=== PATIENT | female | born 1950 | race Caucasian/White ===

== ENCOUNTER 2017-12-10 15:13 | Inpatient (IN) | payer MEDICARE, OTHER ==
[2017-12-10 15:40] LABS: ADD MAN DIFF? NO
[2017-12-10 15:47] LABS: ABNORMAL IP MESSAGE 1; BASOPHILS % 0.3 % (0.0-2.0); EOSINOPHILS # 0.1 10^3/ul (0.0-0.5); EOSINOPHILS % 0.9 % (0.0-7.0); HEMATOCRIT 36.2 % (37.0-47.0); HEMOGLOBIN 10.8 g/dl (12.0-16.0); LYMPHOCYTES # 0.3 10^3/ul (0.8-2.9); LYMPHOCYTES % 4.6 % (15.0-51.0); MEAN CORPUSCULAR HEMOGLOBIN 28.6 pg (29.0-33.0); MEAN CORPUSCULAR HGB CONC 29.8 g/dl (32.0-37.0); MEAN PLATELET VOLUME 9.4 fl (7.4-10.4); MONOCYTE # 0.7 10^3/ul (0.3-0.9); MONOCYTES % 11.1 % (0.0-11.0); NEUTROPHIL # 5.3 10^3/ul (1.6-7.5); NEUTROPHILS % 82.3 % (39.0-77.0); PLATELET COUNT 104 10^3/UL (140-415); RED BLOOD COUNT 3.77 10^6/ul (4.20-5.40); RED CELL DISTRIBUTION WIDTH 15.1 % (11.5-14.5)
[2017-12-10 15:47] LABS: WHITE BLOOD COUNT 6.5 10^3/ul (4.8-10.8)
[2017-12-10 15:50] LABS: POSITIVE DIFF @See below
[2017-12-10 16:05] LABS: INR 0.91; PROTIME 12.3 Sec (11.9-14.9)
[2017-12-10 16:07] LABS: ALANINE AMINOTRANSFERASE 20 IU/L (13-69); ALBUMIN 4.2 g/dl (3.3-4.9); ALBUMIN/GLOBULIN RATIO 1.27; ALKALINE PHOSPHATASE 114 IU/L (42-121); ANION GAP 17 (8-16); ASPARTATE AMINO TRANSFERASE 16 IU/L (15-46); BILIRUBIN,INDIRECT 0.3 mg/dl (0-1.1); BILIRUBIN,TOTAL 0.3 mg/dl (0.2-1.3); BLOOD UREA NITROGEN 31 mg/dl (7-20); CARBON DIOXIDE 30 mmol/L (21-31); CHLORIDE 97 mmol/L (97-110); CREATININE 4.69 mg/dl (0.44-1.00); GLUCOSE 98 mg/dl (70-220); POTASSIUM 4.3 mmol/L (3.5-5.1); SODIUM 140 mmol/L (135-144); TOTAL PROTEIN 7.5 g/dl (6.1-8.1)
[2017-12-10 16:08] LABS: LACTIC ACID 1.4 mmol/L (0.5-2.0)
[2017-12-10] MEDS: ACETAMINOPHEN 325 MG TAB PO (16:11)
[2017-12-10] MEDS: AZTREONAM 1 GM/NS (PMX) 50 ML IVPB (16:11)
[2017-12-10] MEDS: VANCOMYCIN 1 GM (PMX) 250 ML IVPB (16:11)
[2017-12-10 16:17] LABS: TROPONIN-I 0.031 ng/ml (0.000-0.120)
[2017-12-10] MEDS: morphine 4 MG/ML VIAL IV (17:57)
[2017-12-10 18:27] LABS: LACTIC ACID 0.9 mmol/L (0.5-2.0)
[2017-12-10] MEDS ORDERED: ACETAMINOPHEN 325 MG TAB PO (18:30)
[2017-12-10] MEDS ORDERED: ONDANSETRON 4 MG INJ IV (18:30)
[2017-12-10] MEDS ORDERED: VANCOMYCIN IV PER PHARMACY XX (19:30)
[2017-12-10] MEDS: LOSARTAN 50 MG TAB PO (20:02)
[2017-12-10] MEDS: HEPARIN 5,000 UNIT/0.5 ML VIAL SC (21:00)
[2017-12-10] MEDS: ATORVASTATIN 20 MG TAB PO (21:55)
[2017-12-10] MEDS: CALCIUM ACETATE 667 MG CAP PO (21:55)
[2017-12-10] MEDS: METOPROLOL 25 MG TAB PO (21:55)
[2017-12-10] MEDS: morphine 2 MG INJ IV (21:56)
[2017-12-11] MEDS ORDERED: SENNA TAB PO (01:30)
[2017-12-11] MEDS: morphine 2 MG INJ IV ×2 (02:46→06:24)
[2017-12-11 06:19] LABS: ADD MAN DIFF? NO
[2017-12-11 06:39] LABS: ABNORMAL IP MESSAGE 1; BASOPHILS % 0.1 % (0.0-2.0); HEMATOCRIT 33.2 % (37.0-47.0); HEMOGLOBIN 9.7 g/dl (12.0-16.0); LYMPHOCYTES # 0.5 10^3/ul (0.8-2.9); LYMPHOCYTES % 6.5 % (15.0-51.0); MEAN CORPUSCULAR HEMOGLOBIN 28.4 pg (29.0-33.0); MEAN CORPUSCULAR HGB CONC 29.2 g/dl (32.0-37.0); MEAN CORPUSCULAR VOLUME 97.1 fl (82.0-101.0); MEAN PLATELET VOLUME 10.3 fl (7.4-10.4); MONOCYTE # 0.3 10^3/ul (0.3-0.9); MONOCYTES % 3.9 % (0.0-11.0); NEUTROPHIL # 6.1 10^3/ul (1.6-7.5); NEUTROPHILS % 89.2 % (39.0-77.0); PLATELET COUNT 78 10^3/UL (140-415); RED BLOOD COUNT 3.42 10^6/ul (4.20-5.40)
[2017-12-11 06:39] LABS: WHITE BLOOD COUNT 6.9 10^3/ul (4.8-10.8)
[2017-12-11 06:59] LABS: ANION GAP 15 (8-16); BLOOD UREA NITROGEN 43 mg/dl (7-20); CALCIUM 8.5 mg/dl (8.4-10.2); CARBON DIOXIDE 27 mmol/L (21-31); CHLORIDE 100 mmol/L (97-110); CREATININE 5.38 mg/dl (0.44-1.00); GLUCOSE 92 mg/dl (70-220); PHOSPHORUS 3.9 mg/dl (2.5-4.9); SODIUM 137 mmol/L (135-144)
[2017-12-11 07:00] LABS: POSITIVE DIFF @See below
[2017-12-11 07:08] LABS: ALANINE AMINOTRANSFERASE 16 IU/L (13-69); ALBUMIN 3.4 g/dl (3.3-4.9); ALBUMIN/GLOBULIN RATIO 1.21; ALKALINE PHOSPHATASE 79 IU/L (42-121); ANION GAP 18 (8-16); ASPARTATE AMINO TRANSFERASE 11 IU/L (15-46); BILIRUBIN,INDIRECT 0.1 mg/dl (0-1.1); BILIRUBIN,TOTAL 0.1 mg/dl (0.2-1.3); BLOOD UREA NITROGEN 44 mg/dl (7-20); CALCIUM 8.6 mg/dl (8.4-10.2); CARBON DIOXIDE 29 mmol/L (21-31); CHLORIDE 96 mmol/L (97-110); CREATININE 5.32 mg/dl (0.44-1.00); GLUCOSE 95 mg/dl (70-220); SODIUM 138 mmol/L (135-144); TOTAL PROTEIN 6.2 g/dl (6.1-8.1)
[2017-12-11] MEDS: CALCIUM ACETATE 667 MG CAP PO ×3 (09:25→21:11)
[2017-12-11] MEDS: SENNA TAB PO (09:25)
[2017-12-11] MEDS: CEFTRIAXONE 1 GM/50 ML (PMX) 50 ML IVPB (09:26)
[2017-12-11] MEDS ORDERED: ACETAMINOPHEN 325 MG TAB PO (09:30)
[2017-12-11] MEDS: METHIMAZOLE 5 MG TAB PO (09:30)
[2017-12-11] MEDS ORDERED: OXYCODONE/ACETAMINOPHEN (10/325) TAB PO (09:30)
[2017-12-11] MEDS: METOPROLOL 25 MG TAB PO ×2 (09:30→21:13)
[2017-12-11] MEDS ORDERED: ONDANSETRON 4 MG INJ IV (09:30)
[2017-12-11] MEDS: LOSARTAN 50 MG TAB PO (09:31)
[2017-12-11] MEDS: OXYCODONE/ACETAMINOPHEN (5/325) TAB PO ×4 (10:37→23:48)
[2017-12-11] MEDS: ATORVASTATIN 20 MG TAB PO (21:10)
[2017-12-11 21:32] LABS: HEPATITIS B SURFACE ANTIGEN NEGATIVE (NEGATIVE)
[2017-12-12] MEDS: OXYCODONE/ACETAMINOPHEN (5/325) TAB PO ×5 (05:32→21:51)
[2017-12-12 06:10] LABS: ADD MAN DIFF? NO
[2017-12-12 06:22] LABS: ABNORMAL IP MESSAGE 1; BASOPHILS % 0.3 % (0.0-2.0); HEMATOCRIT 31.5 % (37.0-47.0); HEMOGLOBIN 9.4 g/dl (12.0-16.0); LYMPHOCYTES # 0.5 10^3/ul (0.8-2.9); LYMPHOCYTES % 13.6 % (15.0-51.0); MEAN CORPUSCULAR HEMOGLOBIN 27.8 pg (29.0-33.0); MEAN CORPUSCULAR HGB CONC 29.8 g/dl (32.0-37.0); MEAN CORPUSCULAR VOLUME 93.2 fl (82.0-101.0); MEAN PLATELET VOLUME 10.4 fl (7.4-10.4); MONOCYTE # 0.2 10^3/ul (0.3-0.9); MONOCYTES % 5.8 % (0.0-11.0); NEUTROPHIL # 3.2 10^3/ul (1.6-7.5); NEUTROPHILS % 79.8 % (39.0-77.0); RED BLOOD COUNT 3.38 10^6/ul (4.20-5.40); RED CELL DISTRIBUTION WIDTH 14.8 % (11.5-14.5)
[2017-12-12 06:53] LABS: PLATELET COUNT 81 10^3/UL (140-415); POSITIVE DIFF @See below
[2017-12-12 07:10] LABS: ALANINE AMINOTRANSFERASE 22 IU/L (13-69); ALBUMIN 3.4 g/dl (3.3-4.9); ALBUMIN/GLOBULIN RATIO 1.09; ALKALINE PHOSPHATASE 85 IU/L (42-121); ANION GAP 16 (8-16); ASPARTATE AMINO TRANSFERASE 11 IU/L (15-46); BILIRUBIN,INDIRECT 0.2 mg/dl (0-1.1); BILIRUBIN,TOTAL 0.2 mg/dl (0.2-1.3); BLOOD UREA NITROGEN 31 mg/dl (7-20); CALCIUM 8.7 mg/dl (8.4-10.2); CARBON DIOXIDE 29 mmol/L (21-31); CHLORIDE 95 mmol/L (97-110); CREATININE 3.62 mg/dl (0.44-1.00); GLUCOSE 86 mg/dl (70-220); POTASSIUM 4.5 mmol/L (3.5-5.1); SODIUM 135 mmol/L (135-144); TOTAL PROTEIN 6.5 g/dl (6.1-8.1)
[2017-12-12 07:25] LABS: VANCOMYCIN,RANDOM < 5.0 ug/ml
[2017-12-12] MEDS: CALCIUM ACETATE 667 MG CAP PO ×3 (07:50→20:55)
[2017-12-12 08:11] LABS: ADD UMIC YES; UR ASCORBIC ACID NEGATIVE (NEGATIVE); UR BACTERIA FEW /HPF (NONE SEEN); UR BILIRUBIN (Dip) NEGATIVE (NEGATIVE); UR BLOOD (Dip) NEGATIVE (NEGATIVE); UR CLARITY CLOUDY (CLEAR); UR COLOR YELLOW (YELLOW); UR GLUCOSE (Dip) NEGATIVE (NEGATIVE); UR KETONES (Dip) NEGATIVE (NEGATIVE); UR LEUKOCYTE ESTERASE (Dip) 3+ Leu/ul (NEGATIVE); UR NITRITE (Dip) NEGATIVE (NEGATIVE); UR NONSQUAMOUS EPITHELIAL CELL 1 /HPF (NONE SEEN); UR RBC 7 /HPF (0-5); UR SPECIFIC GRAVITY (Dip) 1.017 (1.003-1.030); UR SQUAMOUS EPITHELIAL CELL FEW /HPF (FEW); UR TOTAL PROTEIN (Dip) 2+ mg/dl (NEGATIVE); UR UROBILINOGEN (Dip) NEGATIVE (NEGATIVE); UR WBC > 182 /HPF (0-5)
[2017-12-12] MEDS: CEFTRIAXONE 1 GM/50 ML (PMX) 50 ML IVPB (09:17)
[2017-12-12] MEDS: SENNA TAB PO (09:17)
[2017-12-12] MEDS: METHIMAZOLE 5 MG TAB PO (09:17)
[2017-12-12] MEDS: LOSARTAN 50 MG TAB PO (09:18)
[2017-12-12] MEDS: METOPROLOL 25 MG TAB PO ×2 (09:21→20:58)
[2017-12-12] MEDS: ATORVASTATIN 20 MG TAB PO (20:55)
[2017-12-13] MEDS: OXYCODONE/ACETAMINOPHEN (5/325) TAB PO ×6 (01:52→23:00)
[2017-12-13 06:37] LABS: ADD MAN DIFF? NO
[2017-12-13 06:44] LABS: WHITE BLOOD COUNT 5.1 10^3/ul (4.8-10.8)
[2017-12-13 06:44] LABS: BASOPHILS % 0.4 % (0.0-2.0); EOSINOPHILS % 0.2 % (0.0-7.0); HEMATOCRIT 33.1 % (37.0-47.0); HEMOGLOBIN 9.9 g/dl (12.0-16.0); LYMPHOCYTES # 0.9 10^3/ul (0.8-2.9); MEAN CORPUSCULAR HEMOGLOBIN 27.4 pg (29.0-33.0); MEAN CORPUSCULAR HGB CONC 29.9 g/dl (32.0-37.0); MEAN CORPUSCULAR VOLUME 91.7 fl (82.0-101.0); MEAN PLATELET VOLUME 10.2 fl (7.4-10.4); MONOCYTE # 0.4 10^3/ul (0.3-0.9); MONOCYTES % 8.5 % (0.0-11.0); NEUTROPHIL # 3.7 10^3/ul (1.6-7.5); NEUTROPHILS % 73.5 % (39.0-77.0); PLATELET COUNT 101 10^3/UL (140-415); RED BLOOD COUNT 3.61 10^6/ul (4.20-5.40); RED CELL DISTRIBUTION WIDTH 14.9 % (11.5-14.5)
[2017-12-13 07:23] LABS: ANION GAP 18 (8-16); BLOOD UREA NITROGEN 57 mg/dl (7-20); CALCIUM 8.5 mg/dl (8.4-10.2); CARBON DIOXIDE 29 mmol/L (21-31); CHLORIDE 93 mmol/L (97-110); GLUCOSE 86 mg/dl (70-220); POTASSIUM 4.6 mmol/L (3.5-5.1); SODIUM 135 mmol/L (135-144)
[2017-12-13] MEDS: CEFTRIAXONE 1 GM/50 ML (PMX) 50 ML IVPB (08:54)
[2017-12-13] MEDS: SENNA TAB PO (08:54)
[2017-12-13] MEDS: LOSARTAN 50 MG TAB PO (08:55)
[2017-12-13] MEDS: CALCIUM ACETATE 667 MG CAP PO ×3 (08:56→21:10)
[2017-12-13] MEDS: METHIMAZOLE 5 MG TAB PO (08:56)
[2017-12-13] MEDS: METOPROLOL 25 MG TAB PO ×2 (08:57→21:10)
[2017-12-13] MEDS: LEVOFLOXACIN 250 MG TAB PO (10:35)
[2017-12-13] MEDS: LOPERAMIDE 2 MG CAP PO ×3 (10:35→23:01)
[2017-12-13] MEDS: ATORVASTATIN 20 MG TAB PO (21:09)
[2017-12-13] MEDS: clonAZEPAM 0.5 MG TAB PO (22:59)
[2017-12-14] MEDS: OXYCODONE/ACETAMINOPHEN (5/325) TAB PO ×6 (06:05→23:44)
[2017-12-14] MEDS: LOPERAMIDE 2 MG CAP PO ×2 (06:13→15:14)
[2017-12-14] MEDS: LOSARTAN 50 MG TAB PO (08:42)
[2017-12-14] MEDS: METOPROLOL 25 MG TAB PO ×2 (08:42→20:45)
[2017-12-14] MEDS: METHIMAZOLE 5 MG TAB PO (08:43)
[2017-12-14] MEDS: CALCIUM ACETATE 667 MG CAP PO ×3 (08:43→20:43)
[2017-12-14] MEDS: ATORVASTATIN 20 MG TAB PO (20:43)
[2017-12-14] MEDS: clonAZEPAM 0.5 MG TAB PO (22:12)
[2017-12-15] MEDS: OXYCODONE/ACETAMINOPHEN (5/325) TAB PO ×5 (06:13→22:53)
[2017-12-15] MEDS: CALCIUM ACETATE 667 MG CAP PO ×3 (08:21→20:51)
[2017-12-15] MEDS: METOPROLOL 25 MG TAB PO ×2 (08:22→20:51)
[2017-12-15] MEDS: LOSARTAN 50 MG TAB PO (08:22)
[2017-12-15] MEDS: METHIMAZOLE 5 MG TAB PO (08:23)
[2017-12-15] MEDS: LEVOFLOXACIN 250 MG TAB PO (10:22)
[2017-12-15] MEDS: clonAZEPAM 0.5 MG TAB PO ×2 (13:46→22:53)
[2017-12-15] MEDS: ATORVASTATIN 20 MG TAB PO (20:51)
[2017-12-16] MEDS: OXYCODONE/ACETAMINOPHEN (5/325) TAB PO ×5 (04:40→21:41)
[2017-12-16] MEDS: CALCIUM ACETATE 667 MG CAP PO ×3 (08:51→20:58)
[2017-12-16] MEDS: METHIMAZOLE 5 MG TAB PO (08:51)
[2017-12-16] MEDS: METOPROLOL 25 MG TAB PO ×2 (08:55→20:59)
[2017-12-16] MEDS: LOSARTAN 50 MG TAB PO (08:55)
[2017-12-16 09:30] LABS: ADD MAN DIFF? NO
[2017-12-16 09:32] LABS: WHITE BLOOD COUNT 3.2 10^3/ul (4.8-10.8)
[2017-12-16 09:32] LABS: BASOPHILS % 0.9 % (0.0-2.0); EOSINOPHILS % 0.9 % (0.0-7.0); HEMATOCRIT 36.1 % (37.0-47.0); HEMOGLOBIN 10.9 g/dl (12.0-16.0); LYMPHOCYTES # 0.8 10^3/ul (0.8-2.9); LYMPHOCYTES % 25.9 % (15.0-51.0); MEAN CORPUSCULAR HEMOGLOBIN 28.8 pg (29.0-33.0); MEAN CORPUSCULAR HGB CONC 30.2 g/dl (32.0-37.0); MEAN CORPUSCULAR VOLUME 95.3 fl (82.0-101.0); MEAN PLATELET VOLUME 10.3 fl (7.4-10.4); MONOCYTE # 0.3 10^3/ul (0.3-0.9); NEUTROPHILS % 62.7 % (39.0-77.0); PLATELET COUNT 105 10^3/UL (140-415); RED BLOOD COUNT 3.79 10^6/ul (4.20-5.40); RED CELL DISTRIBUTION WIDTH 14.6 % (11.5-14.5)
[2017-12-16 10:27] LABS: ALANINE AMINOTRANSFERASE 16 IU/L (13-69); ALBUMIN 3.7 g/dl (3.3-4.9); ALBUMIN/GLOBULIN RATIO 1.23; ALKALINE PHOSPHATASE 71 IU/L (42-121); ANION GAP 19 (8-16); ASPARTATE AMINO TRANSFERASE 19 IU/L (15-46); BILIRUBIN,INDIRECT 0.1 mg/dl (0-1.1); BILIRUBIN,TOTAL 0.1 mg/dl (0.2-1.3); BLOOD UREA NITROGEN 57 mg/dl (7-20); CALCIUM 8.5 mg/dl (8.4-10.2); CARBON DIOXIDE 27 mmol/L (21-31); CHLORIDE 97 mmol/L (97-110); CREATININE 5.75 mg/dl (0.44-1.00); GLUCOSE 122 mg/dl (70-220); SODIUM 139 mmol/L (135-144); TOTAL PROTEIN 6.7 g/dl (6.1-8.1)
[2017-12-16 12:52] LABS: FREE T4 (FREE THYROXINE) 1.02 ng/dl (0.78-2.44)
[2017-12-16] MEDS: ATORVASTATIN 20 MG TAB PO (20:58)
[2017-12-16] MEDS: clonAZEPAM 0.5 MG TAB PO (21:41)
[2017-12-17] MEDS: OXYCODONE/ACETAMINOPHEN (5/325) TAB PO ×3 (04:56→13:21)
[2017-12-17] MEDS: METHIMAZOLE 5 MG TAB PO (09:00)
[2017-12-17] MEDS: CALCIUM ACETATE 667 MG CAP PO ×2 (09:01→13:21)
[2017-12-17] MEDS: METOPROLOL 25 MG TAB PO (09:03)
[2017-12-17] MEDS: LOSARTAN 50 MG TAB PO (09:03)
[2017-12-17] MEDS: LEVOFLOXACIN 250 MG TAB PO (11:00)
== END 2017-12-17 14:35 | disposition home or self-care (01) | DRG 871 ==
LOC: E/R 15:13 → MS2 18:23
PROC: 5A1D70Z Performance of Urinary Filtration, Intermittent, Less than 6 Hours Per Day (ICD-10-PCS; 2017-12-10)
PROC: 5A1D70Z Performance of Urinary Filtration, Intermittent, Less than 6 Hours Per Day (ICD-10-PCS; 2017-12-13)
PROC: 5A1D70Z Performance of Urinary Filtration, Intermittent, Less than 6 Hours Per Day (ICD-10-PCS; principal; 2017-12-15)
DX: A41.9 Sepsis, unspecified organism (principal); N18.6 End stage renal disease; N39.0 Urinary tract infection, site not specified; I12.0 Hypertensive chronic kidney disease with stage 5 chronic kidney disease or end stage renal disease; K52.1 Toxic gastroenteritis and colitis; N25.81 Secondary hyperparathyroidism of renal origin; E11.22 Type 2 diabetes mellitus with diabetic chronic kidney disease; D69.6 Thrombocytopenia, unspecified; I48.91 Unspecified atrial fibrillation; D63.1 Anemia in chronic kidney disease; E78.5 Hyperlipidemia, unspecified; E03.9 Hypothyroidism, unspecified; G89.4 Chronic pain syndrome; F41.9 Anxiety disorder, unspecified; T36.1X5A Adverse effect of cephalosporins and other beta-lactam antibiotics, initial encounter; T36.8X5A Adverse effect of other systemic antibiotics, initial encounter; Y92.230 Patient room in hospital as the place of occurrence of the external cause; B96.20 Unspecified Escherichia coli [E. coli] as the cause of diseases classified elsewhere; K80.20 Calculus of gallbladder without cholecystitis without obstruction; Z99.2 Dependence on renal dialysis; Z87.891 Personal history of nicotine dependence
CPT/HCPCS: 36415; 71045; 76775; 80048; 80053; 80202; 81001; 83605; 84100; 84439; 84443; 84484; 85025; 85610; 85730; 87040; 87075; 87081; 87086; 87340; 90935; 93005; 96374; 96375; 99285-25

== ENCOUNTER 2018-06-01 07:40 | Inpatient (IN) | payer MEDICARE, OTHER ==
[~2018-06-01 07:40] MED LIST: ATROPINE 1 MG/10 ML SYRINGE
[2018-06-01] MEDS: ATROPINE 0.4 MG INJ IV (08:44)
[2018-06-01 09:02] LABS: ADD MAN DIFF? NO
[2018-06-01 09:04] LABS: WHITE BLOOD COUNT 3.5 10^3/ul (4.8-10.8)
[2018-06-01 09:05] LABS: ABNORMAL IP MESSAGE 1; BASOPHILS % 0.3 % (0.0-2.0); EOSINOPHILS % 1.1 % (0.0-7.0); HEMATOCRIT 17.5 % (37.0-47.0); LYMPHOCYTES # 0.8 10^3/ul (0.8-2.9); LYMPHOCYTES % 21.9 % (15.0-51.0); MEAN CORPUSCULAR HEMOGLOBIN 22.7 pg (29.0-33.0); MEAN CORPUSCULAR HGB CONC 26.3 g/dl (32.0-37.0); MEAN CORPUSCULAR VOLUME 86.2 fl (82.0-101.0); MEAN PLATELET VOLUME 11.7 fl (7.4-10.4); MONOCYTE # 0.4 10^3/ul (0.3-0.9); MONOCYTES % 10.8 % (0.0-11.0); NEUTROPHIL # 2.3 10^3/ul (1.6-7.5); NEUTROPHILS % 65.6 % (39.0-77.0); RED BLOOD COUNT 2.03 10^6/ul (4.20-5.40); RED CELL DISTRIBUTION WIDTH 17.4 % (11.5-14.5)
[2018-06-01 09:06] LABS: PLATELET COUNT 76 10^3/UL (140-415); POSITIVE DIFF @See below
[2018-06-01 09:09] LABS: HEMOGLOBIN 4.6 g/dl (12.0-16.0)
[2018-06-01 09:21] LABS: ANION GAP 11 (5-13); BLOOD UREA NITROGEN 28 mg/dl (7-20); CALCIUM 6.4 mg/dl (8.4-10.2); CARBON DIOXIDE 22 mmol/L (21-31); CHLORIDE 106 mmol/L (97-110); Estimated GFR 11 mL/min (>60); GLUCOSE 66 mg/dl (70-220); SODIUM 139 mmol/L (135-144)
[2018-06-01 09:24] LABS: PARTIAL THROMBOPLASTIN TIME 35.5 Sec (23.0-35.0); PROTIME 21.3 Sec (11.9-14.9); PT RATIO 1.7
[2018-06-01 09:25] LABS: POTASSIUM 2.9 mmol/L (3.5-5.1)
[2018-06-01 09:32] LABS: TROPONIN-I 0.044 ng/ml (0.000-0.120)
[2018-06-01 09:33] LABS: PATH REVIEW? YES
[2018-06-01 10:14] LABS: DIGOXIN < 0.4 ng/ml (1.0-2.0)
[2018-06-01] MEDS ORDERED: SOD CHLORIDE 0.9% 1,000 ML IV ×2 (12:19→13:30)
[2018-06-01] MEDS ORDERED: ACETAMINOPHEN 325 MG TAB PO (12:30)
[2018-06-01] MEDS ORDERED: ONDANSETRON 4 MG INJ IV (12:30)
[2018-06-01] MEDS: ONDANSETRON 4 MG INJ IV (13:06)
[2018-06-01] MEDS: morphine 4 MG/ML VIAL IV (13:06)
[2018-06-01] MEDS: LOSARTAN 50 MG TAB PO ×2 (13:30→22:39)
[2018-06-01] MEDS: METOPROLOL 25 MG TAB PO ×2 (13:30→22:40)
[2018-06-01] MEDS: clonAZEPAM 0.5 MG TAB PO ×2 (13:30→21:00)
[2018-06-01] MEDS ORDERED: VANCOMYCIN IV PER PHARMACY XX (13:30)
[2018-06-01] MEDS: HYDROCODONE/APAP (10/325) TAB PO ×2 (13:52→19:31)
[2018-06-01] MEDS: DEXTROSE 5%-0.45% NACL 1,000 ML IV (13:57)
[2018-06-01 14:34] LABS: IMMEDIATE SPIN CROSSMATCH 1 2
[2018-06-01] MEDS: LORAZEPAM 4 MG/ML VIAL IV (15:04)
[2018-06-01 17:03] LABS: IRON 24 ug/dl (35-150)
[2018-06-01 17:12] LABS: % IRON SATURATION 7 % SAT (22-52); TOTAL IRON BINDING CAPACITY 330 ug/dl (241-421)
[2018-06-01 17:39] LABS: FERRITIN 26.5 ng/ml (11.1-264.0)
[2018-06-01] MEDS: LEVOFLOXACIN 500MG/D5W (PMX) 100 ML IVPB (18:12)
[2018-06-01] MEDS: CALCIUM ACETATE 667 MG CAP PO (18:12)
[2018-06-01] MEDS: CALCIUM GLUCONATE 10% 2 GM in DEXTROSE 5% 100 ML IVPB (19:30)
[2018-06-01] MEDS: ATORVASTATIN 20 MG TAB PO (21:03)
[2018-06-01 22:05] LABS: ADD MAN DIFF? NO
[2018-06-01 22:27] LABS: BASOPHILS % 0.7 % (0.0-2.0); EOSINOPHILS % 0.5 % (0.0-7.0); HEMATOCRIT 29.6 % (37.0-47.0); HEMOGLOBIN 8.7 g/dl (12.0-16.0); LYMPHOCYTES # 0.9 10^3/ul (0.8-2.9); LYMPHOCYTES % 14.3 % (15.0-51.0); MEAN CORPUSCULAR HEMOGLOBIN 24.6 pg (29.0-33.0); MEAN CORPUSCULAR HGB CONC 29.4 g/dl (32.0-37.0); MEAN CORPUSCULAR VOLUME 83.6 fl (82.0-101.0); MONOCYTE # 0.7 10^3/ul (0.3-0.9); MONOCYTES % 11.8 % (0.0-11.0); NEUTROPHIL # 4.4 10^3/ul (1.6-7.5); NEUTROPHILS % 72.4 % (39.0-77.0); PLATELET COUNT 112 10^3/UL (140-415); RED BLOOD COUNT 3.54 10^6/ul (4.20-5.40); RED CELL DISTRIBUTION WIDTH 16.5 % (11.5-14.5)
[2018-06-01 22:27] LABS: PHOSPHORUS 4.4 mg/dl (2.5-4.9); WHITE BLOOD COUNT 6.1 10^3/ul (4.8-10.8)
[2018-06-01 22:28] LABS: ANION GAP 15 (5-13); BLOOD UREA NITROGEN 41 mg/dl (7-20); CALCIUM 8.8 mg/dl (8.4-10.2); CARBON DIOXIDE 26 mmol/L (21-31); CHLORIDE 93 mmol/L (97-110); Estimated GFR 8 mL/min (>60); GLUCOSE 107 mg/dl (70-220); SODIUM 134 mmol/L (135-144)
[2018-06-01 22:37] LABS: VANCOMYCIN,RANDOM < 5.0 ug/ml
[2018-06-02] MEDS: VANCOMYCIN 750 MG in SOD CHLORIDE 0.9% 150 ML IVPB (00:35)
[2018-06-02] MEDS: HYDROCODONE/APAP (10/325) TAB PO ×4 (01:20→20:30)
[2018-06-02] MEDS: clonAZEPAM 0.5 MG TAB PO ×3 (02:32→20:29)
[2018-06-02 05:09] LABS: ADD MAN DIFF? NO
[2018-06-02 05:11] LABS: WHITE BLOOD COUNT 6.1 10^3/ul (4.8-10.8)
[2018-06-02 05:11] LABS: BASOPHILS % 0.7 % (0.0-2.0); EOSINOPHILS # 0.1 10^3/ul (0.0-0.5); HEMATOCRIT 27.6 % (37.0-47.0); HEMOGLOBIN 8.1 g/dl (12.0-16.0); LYMPHOCYTES # 0.9 10^3/ul (0.8-2.9); LYMPHOCYTES % 14.3 % (15.0-51.0); MEAN CORPUSCULAR HEMOGLOBIN 24.6 pg (29.0-33.0); MEAN CORPUSCULAR HGB CONC 29.3 g/dl (32.0-37.0); MEAN CORPUSCULAR VOLUME 83.9 fl (82.0-101.0); MONOCYTE # 0.7 10^3/ul (0.3-0.9); MONOCYTES % 11.2 % (0.0-11.0); NEUTROPHIL # 4.4 10^3/ul (1.6-7.5); NEUTROPHILS % 72.5 % (39.0-77.0); PLATELET COUNT 134 10^3/UL (140-415); RED BLOOD COUNT 3.29 10^6/ul (4.20-5.40); RED CELL DISTRIBUTION WIDTH 16.5 % (11.5-14.5)
[2018-06-02 05:30] LABS: INR 1.22; PROTIME 15.6 Sec (11.9-14.9); PT RATIO 1.2
[2018-06-02 05:31] LABS: PARTIAL THROMBOPLASTIN TIME 32.8 Sec (23.0-35.0)
[2018-06-02 05:38] LABS: ANION GAP 12 (5-13); BLOOD UREA NITROGEN 43 mg/dl (7-20); CALCIUM 8.4 mg/dl (8.4-10.2); CARBON DIOXIDE 27 mmol/L (21-31); CHLORIDE 93 mmol/L (97-110); CREATININE 5.53 mg/dl (0.44-1.00); Estimated GFR 8 mL/min (>60); GLUCOSE 100 mg/dl (70-220); POTASSIUM 3.8 mmol/L (3.5-5.1); SODIUM 132 mmol/L (135-144)
[2018-06-02] MEDS: METOPROLOL 25 MG TAB PO ×2 (09:00→20:30)
[2018-06-02] MEDS ORDERED: SENNA TAB PO ×3 (09:00→21:00)
[2018-06-02] MEDS: CALCIUM ACETATE 667 MG CAP PO ×3 (09:08→18:33)
[2018-06-02] MEDS ORDERED: HYDROCODONE/APAP (10/325) TAB PO (09:30)
[2018-06-02] MEDS ORDERED: HYDROCODONE/APAP (7.5/325) TAB PO (09:30)
[2018-06-02] MEDS: DEXTROSE 5%-0.45% NACL 1,000 ML IV ×2 (10:34→17:43)
[2018-06-02] MEDS: SOD FERRIC GLUC COMPLX 125 MG in SOD CHLORIDE 0.9% 100 ML IVPB (13:46)
[2018-06-02 14:15] LABS: HEPATITIS B SURFACE ANTIGEN NEGATIVE (NEGATIVE)
[2018-06-02 14:48] LABS: HEPATITIS B SURFACE ANTIBODY NEGATIVE (NEGATIVE)
[2018-06-02] MEDS: EPOETIN 10000 UNITS/1 ML INJ (ESRD) SC (18:34)
[2018-06-02] MEDS: ATORVASTATIN 20 MG TAB PO (20:29)
[2018-06-02] MEDS: SENNA TAB PO (20:30)
[2018-06-03] MEDS: HYDROCODONE/APAP (10/325) TAB PO ×4 (03:50→17:37)
[2018-06-03] MEDS: ALBUMIN HUMAN 25% 100 ML IV ×2 (03:50→06:45)
[2018-06-03 05:22] LABS: ADD MAN DIFF? NO
[2018-06-03 05:41] LABS: WHITE BLOOD COUNT 4.4 10^3/ul (4.8-10.8)
[2018-06-03 05:41] LABS: BASOPHILS % 0.9 % (0.0-2.0); EOSINOPHILS # 0.1 10^3/ul (0.0-0.5); EOSINOPHILS % 2.5 % (0.0-7.0); HEMATOCRIT 27.3 % (37.0-47.0); HEMOGLOBIN 8.1 g/dl (12.0-16.0); LYMPHOCYTES # 0.7 10^3/ul (0.8-2.9); LYMPHOCYTES % 15.6 % (15.0-51.0); MEAN CORPUSCULAR HEMOGLOBIN 24.9 pg (29.0-33.0); MEAN CORPUSCULAR HGB CONC 29.7 g/dl (32.0-37.0); MEAN PLATELET VOLUME 11.3 fl (7.4-10.4); MONOCYTE # 0.6 10^3/ul (0.3-0.9); MONOCYTES % 12.6 % (0.0-11.0); NEUTROPHILS % 68.2 % (39.0-77.0); PLATELET COUNT 105 10^3/UL (140-415); RED BLOOD COUNT 3.25 10^6/ul (4.20-5.40); RED CELL DISTRIBUTION WIDTH 17.3 % (11.5-14.5)
[2018-06-03] MEDS: LEVOTHYROXINE 25 MCG TAB PO (05:42)
[2018-06-03 06:00] LABS: ANION GAP 13 (5-13); BLOOD UREA NITROGEN 26 mg/dl (7-20); CALCIUM 8.4 mg/dl (8.4-10.2); CARBON DIOXIDE 28 mmol/L (21-31); CHLORIDE 96 mmol/L (97-110); CREATININE 4.15 mg/dl (0.44-1.00); Estimated GFR 11 mL/min (>60); GLUCOSE 145 mg/dl (70-220); PHOSPHORUS 3.3 mg/dl (2.5-4.9); POTASSIUM 3.6 mmol/L (3.5-5.1); SODIUM 137 mmol/L (135-144)
[2018-06-03 06:05] LABS: FREE T4 (FREE THYROXINE) 0.86 ng/dl (0.78-2.44)
[2018-06-03 06:06] LABS: FREE T3 3.49 pg/ml (2.77-5.27)
[2018-06-03 06:11] LABS: VANCOMYCIN,RANDOM 7.7 ug/ml
[2018-06-03] MEDS ORDERED: LIDOCAINE 2% (SDV) 5 ML INJ (07:18)
[2018-06-03] MEDS ORDERED: HEPARIN 1000 UNITS/ML 10 ML INJ (07:18)
[2018-06-03] MEDS ORDERED: HEPARIN 1000 UNITS/NS (A-LINE) 1,000 ML (07:18)
[2018-06-03] MEDS ORDERED: IODIXANOL LOCM 100 ML BTL (07:18)
[2018-06-03] MEDS: CALCIUM ACETATE 667 MG CAP PO ×3 (07:35→17:37)
[2018-06-03] MEDS: LOSARTAN 50 MG TAB PO (09:00)
[2018-06-03] MEDS: clonAZEPAM 0.5 MG TAB PO ×2 (09:00→21:18)
[2018-06-03] MEDS: METOPROLOL 25 MG TAB PO ×2 (09:00→21:00)
[2018-06-03] MEDS: VANCOMYCIN 1 GM 250 ML IVPB (09:18)
[2018-06-03 12:26] LABS: ADD MAN DIFF? NO
[2018-06-03 12:31] LABS: WHITE BLOOD COUNT 4.5 10^3/ul (4.8-10.8)
[2018-06-03 12:31] LABS: ABNORMAL IP MESSAGE 1; BASOPHILS % 0.7 % (0.0-2.0); EOSINOPHILS # 0.1 10^3/ul (0.0-0.5); EOSINOPHILS % 1.8 % (0.0-7.0); HEMATOCRIT 26.2 % (37.0-47.0); HEMOGLOBIN 7.6 g/dl (12.0-16.0); LYMPHOCYTES # 0.7 10^3/ul (0.8-2.9); LYMPHOCYTES % 15.4 % (15.0-51.0); MEAN CORPUSCULAR HEMOGLOBIN 24.8 pg (29.0-33.0); MEAN CORPUSCULAR VOLUME 85.3 fl (82.0-101.0); MEAN PLATELET VOLUME 11.4 fl (7.4-10.4); MONOCYTE # 0.5 10^3/ul (0.3-0.9); MONOCYTES % 11.9 % (0.0-11.0); NEUTROPHIL # 3.2 10^3/ul (1.6-7.5); NEUTROPHILS % 69.8 % (39.0-77.0); PLATELET COUNT 98 10^3/UL (140-415); RED BLOOD COUNT 3.07 10^6/ul (4.20-5.40); RED CELL DISTRIBUTION WIDTH 17.5 % (11.5-14.5)
[2018-06-03 12:32] LABS: POSITIVE DIFF @See below
[2018-06-03 12:48] LABS: INR 1.09; PROTIME 14.3 Sec (11.9-14.9); PT RATIO 1.1
[2018-06-03 12:49] LABS: PARTIAL THROMBOPLASTIN TIME 34.3 Sec (23.0-35.0)
[2018-06-03 14:24] LABS: TYPE AND SCREEN 1
[2018-06-03] MEDS: SOD FERRIC GLUC COMPLX 125 MG in SOD CHLORIDE 0.9% 100 ML IVPB (16:41)
[2018-06-03] MEDS: LEVOFLOXACIN 500MG/D5W (PMX) 100 ML IVPB (17:39)
[2018-06-03] MEDS: ATORVASTATIN 20 MG TAB PO (21:18)
[2018-06-03] MEDS: SENNA TAB PO (21:19)
[2018-06-04] MEDS: morphine 2 MG INJ IV (03:41)
[2018-06-04 04:42] LABS: ADD MAN DIFF? NO
[2018-06-04 04:47] LABS: WHITE BLOOD COUNT 5.8 10^3/ul (4.8-10.8)
[2018-06-04 04:47] LABS: ABNORMAL IP MESSAGE 1; BASOPHILS % 0.5 % (0.0-2.0); EOSINOPHILS # 0.1 10^3/ul (0.0-0.5); EOSINOPHILS % 2.2 % (0.0-7.0); HEMATOCRIT 27.9 % (37.0-47.0); HEMOGLOBIN 7.9 g/dl (12.0-16.0); LYMPHOCYTES # 0.8 10^3/ul (0.8-2.9); LYMPHOCYTES % 13.3 % (15.0-51.0); MEAN CORPUSCULAR HGB CONC 28.3 g/dl (32.0-37.0); MEAN CORPUSCULAR VOLUME 88.3 fl (82.0-101.0); MEAN PLATELET VOLUME 10.4 fl (7.4-10.4); MONOCYTE # 0.8 10^3/ul (0.3-0.9); MONOCYTES % 12.9 % (0.0-11.0); NEUTROPHIL # 4.1 10^3/ul (1.6-7.5); NEUTROPHILS % 70.6 % (39.0-77.0); NUCLEATED RED BLOOD CELLS% 0.3 /100WBC (0.0-0.0); PLATELET COUNT 135 10^3/UL (140-415); RED BLOOD COUNT 3.16 10^6/ul (4.20-5.40); RED CELL DISTRIBUTION WIDTH 17.6 % (11.5-14.5)
[2018-06-04 04:51] LABS: POSITIVE DIFF @See below
[2018-06-04 05:05] LABS: ALANINE AMINOTRANSFERASE 14 IU/L (13-69); ALBUMIN 3.2 g/dl (3.3-4.9); ALBUMIN/GLOBULIN RATIO 1.18; ALKALINE PHOSPHATASE 61 IU/L (42-121); ANION GAP 10 (5-13); ASPARTATE AMINO TRANSFERASE 15 IU/L (15-46); BLOOD UREA NITROGEN 33 mg/dl (7-20); CALCIUM 8.5 mg/dl (8.4-10.2); CARBON DIOXIDE 28 mmol/L (21-31); CHLORIDE 100 mmol/L (97-110); CREATININE 4.99 mg/dl (0.44-1.00); Estimated GFR 9 mL/min (>60); GLUCOSE 114 mg/dl (70-220); MAGNESIUM 1.9 mg/dl (1.7-2.5); POTASSIUM 3.6 mmol/L (3.5-5.1); SODIUM 138 mmol/L (135-144); TOTAL PROTEIN 5.9 g/dl (6.1-8.1)
[2018-06-04] MEDS: LOSARTAN 50 MG TAB PO (09:00)
[2018-06-04] MEDS: clonAZEPAM 0.5 MG TAB PO ×2 (09:06→21:25)
[2018-06-04] MEDS: CALCIUM ACETATE 667 MG CAP PO ×4 (09:06→18:00)
[2018-06-04] MEDS: HYDROCODONE/APAP (10/325) TAB PO ×3 (09:06→21:35)
[2018-06-04] MEDS: METOPROLOL 25 MG TAB PO ×2 (11:11→21:00)
[2018-06-04] MEDS: morphine 4 MG/ML VIAL IV (12:56)
[2018-06-04] MEDS: HEPARIN 1000 UNITS/ML 10 ML INJ CATHETER (17:40)
[2018-06-04] MEDS: SOD FERRIC GLUC COMPLX 125 MG in SOD CHLORIDE 0.9% 100 ML IVPB (18:33)
[2018-06-04] MEDS: EPOETIN 10000 UNITS/1 ML INJ (ESRD) SC (18:33)
[2018-06-04] MEDS: ATORVASTATIN 20 MG TAB PO (21:26)
[2018-06-04] MEDS: SENNA TAB PO (21:27)
[2018-06-05] MEDS: HYDROCODONE/APAP (10/325) TAB PO ×4 (03:03→20:40)
[2018-06-05 05:22] LABS: ADD MAN DIFF? NO
[2018-06-05 05:26] LABS: ABNORMAL IP MESSAGE 1; BASOPHILS % 0.6 % (0.0-2.0); EOSINOPHILS # 0.2 10^3/ul (0.0-0.5); HEMATOCRIT 25.8 % (37.0-47.0); HEMOGLOBIN 7.3 g/dl (12.0-16.0); LYMPHOCYTES # 0.6 10^3/ul (0.8-2.9); LYMPHOCYTES % 11.4 % (15.0-51.0); MEAN CORPUSCULAR HEMOGLOBIN 24.6 pg (29.0-33.0); MEAN CORPUSCULAR HGB CONC 28.3 g/dl (32.0-37.0); MEAN CORPUSCULAR VOLUME 86.9 fl (82.0-101.0); MEAN PLATELET VOLUME 10.3 fl (7.4-10.4); MONOCYTE # 0.6 10^3/ul (0.3-0.9); MONOCYTES % 11.8 % (0.0-11.0); NEUTROPHIL # 3.7 10^3/ul (1.6-7.5); NEUTROPHILS % 72.8 % (39.0-77.0); PLATELET COUNT 113 10^3/UL (140-415); RED BLOOD COUNT 2.97 10^6/ul (4.20-5.40); RED CELL DISTRIBUTION WIDTH 18.6 % (11.5-14.5)
[2018-06-05 05:26] LABS: WHITE BLOOD COUNT 5.1 10^3/ul (4.8-10.8)
[2018-06-05 06:05] LABS: POSITIVE DIFF @See below
[2018-06-05 06:13] LABS: ALANINE AMINOTRANSFERASE 12 IU/L (13-69); ALBUMIN/GLOBULIN RATIO 1.07; ALKALINE PHOSPHATASE 69 IU/L (42-121); ANION GAP 8 (5-13); ASPARTATE AMINO TRANSFERASE 16 IU/L (15-46); BLOOD UREA NITROGEN 23 mg/dl (7-20); CALCIUM 8.5 mg/dl (8.4-10.2); CARBON DIOXIDE 28 mmol/L (21-31); CHLORIDE 101 mmol/L (97-110); CREATININE 3.83 mg/dl (0.44-1.00); Estimated GFR 12 mL/min (>60); GLUCOSE 130 mg/dl (70-220); POTASSIUM 3.8 mmol/L (3.5-5.1); SODIUM 137 mmol/L (135-144); TOTAL PROTEIN 5.8 g/dl (6.1-8.1)
[2018-06-05] MEDS: LEVOFLOXACIN 500 MG TAB PO (06:39)
[2018-06-05] MEDS: clonAZEPAM 0.5 MG TAB PO ×2 (08:12→20:40)
[2018-06-05] MEDS: CALCIUM ACETATE 667 MG CAP PO ×3 (08:12→17:34)
[2018-06-05] MEDS: LOSARTAN 50 MG TAB PO (08:13)
[2018-06-05] MEDS: METOPROLOL 25 MG TAB PO ×2 (08:13→21:00)
[2018-06-05] MEDS: SOD FERRIC GLUC COMPLX 125 MG in SOD CHLORIDE 0.9% 100 ML IVPB (13:27)
[2018-06-05] MEDS: ATORVASTATIN 20 MG TAB PO (20:40)
[2018-06-05] MEDS: SENNA TAB PO (20:41)
[2018-06-06] MEDS: HYDROCODONE/APAP (10/325) TAB PO ×5 (01:35→23:43)
[2018-06-06 05:58] LABS: ADD MAN DIFF? NO
[2018-06-06 06:36] LABS: WHITE BLOOD COUNT 5.1 10^3/ul (4.8-10.8)
[2018-06-06 06:36] LABS: ABNORMAL IP MESSAGE 1; BASOPHILS % 0.8 % (0.0-2.0); EOSINOPHILS # 0.2 10^3/ul (0.0-0.5); EOSINOPHILS % 3.3 % (0.0-7.0); HEMATOCRIT 28.2 % (37.0-47.0); HEMOGLOBIN 8.1 g/dl (12.0-16.0); LYMPHOCYTES # 0.7 10^3/ul (0.8-2.9); LYMPHOCYTES % 13.7 % (15.0-51.0); MEAN CORPUSCULAR HGB CONC 28.7 g/dl (32.0-37.0); MEAN PLATELET VOLUME 10.8 fl (7.4-10.4); MONOCYTE # 0.6 10^3/ul (0.3-0.9); MONOCYTES % 11.8 % (0.0-11.0); NEUTROPHIL # 3.6 10^3/ul (1.6-7.5); NEUTROPHILS % 69.6 % (39.0-77.0); PLATELET COUNT 94 10^3/UL (140-415); RED BLOOD COUNT 3.24 10^6/ul (4.20-5.40); RED CELL DISTRIBUTION WIDTH 19.7 % (11.5-14.5)
[2018-06-06 06:49] LABS: ALANINE AMINOTRANSFERASE 15 IU/L (13-69); ALBUMIN 2.8 g/dl (3.3-4.9); ALBUMIN/GLOBULIN RATIO 1.07; ALKALINE PHOSPHATASE 61 IU/L (42-121); ANION GAP 9 (5-13); ASPARTATE AMINO TRANSFERASE 16 IU/L (15-46); BLOOD UREA NITROGEN 34 mg/dl (7-20); CALCIUM 8.9 mg/dl (8.4-10.2); CARBON DIOXIDE 28 mmol/L (21-31); CHLORIDE 98 mmol/L (97-110); CREATININE 4.56 mg/dl (0.44-1.00); Estimated GFR 10 mL/min (>60); GLUCOSE 96 mg/dl (70-220); POTASSIUM 4.3 mmol/L (3.5-5.1); SODIUM 135 mmol/L (135-144); TOTAL PROTEIN 5.4 g/dl (6.1-8.1)
[2018-06-06 06:53] LABS: VANCOMYCIN,RANDOM 11.1 ug/ml
[2018-06-06 07:28] LABS: POSITIVE DIFF @See below
[2018-06-06] MEDS: CALCIUM ACETATE 667 MG CAP PO ×3 (08:29→17:56)
[2018-06-06] MEDS: LOSARTAN 50 MG TAB PO (08:30)
[2018-06-06] MEDS: METOPROLOL 25 MG TAB PO ×2 (08:30→23:43)
[2018-06-06] MEDS: clonAZEPAM 0.5 MG TAB PO ×2 (08:31→23:42)
[2018-06-06] MEDS: VANCOMYCIN 1 GM 250 ML IVPB (11:00)
[2018-06-06] MEDS: SOD FERRIC GLUC COMPLX 125 MG in SOD CHLORIDE 0.9% 100 ML IVPB (14:14)
[2018-06-06] MEDS: HEPARIN 1000 UNITS/ML 10 ML INJ CATHETER (23:21)
[2018-06-06] MEDS: ATORVASTATIN 20 MG TAB PO (23:42)
[2018-06-06] MEDS: SENNA TAB PO (23:42)
[2018-06-07] MEDS: HYDROCODONE/APAP (10/325) TAB PO ×4 (08:11→22:33)
[2018-06-07 08:31] LABS: ADD MAN DIFF? NO
[2018-06-07 08:34] LABS: ABNORMAL IP MESSAGE 1; BASOPHILS % 0.8 % (0.0-2.0); EOSINOPHILS # 0.3 10^3/ul (0.0-0.5); EOSINOPHILS % 5.6 % (0.0-7.0); HEMATOCRIT 29.9 % (37.0-47.0); HEMOGLOBIN 8.6 g/dl (12.0-16.0); LYMPHOCYTES # 0.7 10^3/ul (0.8-2.9); LYMPHOCYTES % 13.6 % (15.0-51.0); MEAN CORPUSCULAR HEMOGLOBIN 25.4 pg (29.0-33.0); MEAN CORPUSCULAR HGB CONC 28.8 g/dl (32.0-37.0); MEAN CORPUSCULAR VOLUME 88.5 fl (82.0-101.0); MEAN PLATELET VOLUME 9.7 fl (7.4-10.4); MONOCYTE # 0.6 10^3/ul (0.3-0.9); MONOCYTES % 12.8 % (0.0-11.0); NEUTROPHIL # 3.2 10^3/ul (1.6-7.5); PLATELET COUNT 123 10^3/UL (140-415); RED BLOOD COUNT 3.38 10^6/ul (4.20-5.40); RED CELL DISTRIBUTION WIDTH 21.4 % (11.5-14.5)
[2018-06-07 08:34] LABS: WHITE BLOOD COUNT 4.8 10^3/ul (4.8-10.8)
[2018-06-07 08:37] LABS: POSITIVE DIFF @See below
[2018-06-07] MEDS: CALCIUM ACETATE 667 MG CAP PO ×3 (09:00→18:22)
[2018-06-07] MEDS: LEVOFLOXACIN 500 MG TAB PO (09:00)
[2018-06-07] MEDS: METOPROLOL 25 MG TAB PO ×2 (09:01→20:16)
[2018-06-07] MEDS: LOSARTAN 50 MG TAB PO (09:03)
[2018-06-07 09:09] LABS: ANION GAP 6 (5-13); BLOOD UREA NITROGEN 26 mg/dl (7-20); CALCIUM 8.6 mg/dl (8.4-10.2); CARBON DIOXIDE 29 mmol/L (21-31); CHLORIDE 98 mmol/L (97-110); CREATININE 3.64 mg/dl (0.44-1.00); Estimated GFR 12 mL/min (>60); GLUCOSE 101 mg/dl (70-220); PHOSPHORUS 3.3 mg/dl (2.5-4.9); POTASSIUM 4.3 mmol/L (3.5-5.1); SODIUM 133 mmol/L (135-144)
[2018-06-07] MEDS: clonAZEPAM 0.5 MG TAB PO ×2 (10:11→20:17)
[2018-06-07] MEDS: EPOETIN 10000 UNITS/1 ML INJ (ESRD) SC (18:23)
[2018-06-07] MEDS: SENNA TAB PO (20:15)
[2018-06-07] MEDS: ATORVASTATIN 20 MG TAB PO (20:16)
[2018-06-08] MEDS: morphine 4 MG/ML VIAL IV ×2 (01:36→23:42)
[2018-06-08] MEDS: HYDROCODONE/APAP (10/325) TAB PO ×5 (02:55→22:12)
[2018-06-08 06:25] LABS: ADD MAN DIFF? NO
[2018-06-08 06:39] LABS: ABNORMAL IP MESSAGE 1; BASOPHILS % 0.8 % (0.0-2.0); EOSINOPHILS # 0.2 10^3/ul (0.0-0.5); EOSINOPHILS % 4.2 % (0.0-7.0); HEMATOCRIT 28.6 % (37.0-47.0); HEMOGLOBIN 8.2 g/dl (12.0-16.0); LYMPHOCYTES # 0.7 10^3/ul (0.8-2.9); LYMPHOCYTES % 13.7 % (15.0-51.0); MEAN CORPUSCULAR HEMOGLOBIN 25.5 pg (29.0-33.0); MEAN CORPUSCULAR HGB CONC 28.7 g/dl (32.0-37.0); MEAN CORPUSCULAR VOLUME 89.1 fl (82.0-101.0); MEAN PLATELET VOLUME 10.3 fl (7.4-10.4); MONOCYTE # 0.7 10^3/ul (0.3-0.9); MONOCYTES % 14.3 % (0.0-11.0); NEUTROPHIL # 3.2 10^3/ul (1.6-7.5); NEUTROPHILS % 66.8 % (39.0-77.0); PLATELET COUNT 107 10^3/UL (140-415); RED BLOOD COUNT 3.21 10^6/ul (4.20-5.40); RED CELL DISTRIBUTION WIDTH 22.4 % (11.5-14.5)
[2018-06-08 06:39] LABS: WHITE BLOOD COUNT 4.7 10^3/ul (4.8-10.8)
[2018-06-08 06:48] LABS: POSITIVE DIFF @See below
[2018-06-08 07:09] LABS: ALANINE AMINOTRANSFERASE 18 IU/L (13-69); ALBUMIN 2.8 g/dl (3.3-4.9); ALBUMIN/GLOBULIN RATIO 1.07; ALKALINE PHOSPHATASE 61 IU/L (42-121); ANION GAP 7 (5-13); ASPARTATE AMINO TRANSFERASE 17 IU/L (15-46); BLOOD UREA NITROGEN 44 mg/dl (7-20); CALCIUM 8.7 mg/dl (8.4-10.2); CARBON DIOXIDE 28 mmol/L (21-31); CHLORIDE 98 mmol/L (97-110); Estimated GFR 10 mL/min (>60); GLUCOSE 90 mg/dl (70-220); POTASSIUM 4.4 mmol/L (3.5-5.1); SODIUM 133 mmol/L (135-144); TOTAL PROTEIN 5.4 g/dl (6.1-8.1)
[2018-06-08] MEDS: CALCIUM ACETATE 667 MG CAP PO ×3 (07:49→17:28)
[2018-06-08] MEDS: clonAZEPAM 0.5 MG TAB PO ×2 (08:47→22:08)
[2018-06-08] MEDS: METOPROLOL 25 MG TAB PO ×2 (08:48→20:51)
[2018-06-08] MEDS: LOSARTAN 50 MG TAB PO (08:48)
[2018-06-08] MEDS: BISACODYL (EC) 5 MG TAB PO (12:19)
[2018-06-08] MEDS ORDERED: SOD FERRIC GLUC COMPLX 125 MG in SOD CHLORIDE 0.9% 100 ML IVPB (13:00)
[2018-06-08] MEDS: SOD FERRIC GLUC COMPLX 125 MG in SOD CHLORIDE 0.9% 100 ML IVPB (13:43)
[2018-06-08] MEDS: SENNA TAB PO (20:50)
[2018-06-08] MEDS: ATORVASTATIN 20 MG TAB PO (22:08)
[2018-06-09] MEDS: HYDROCODONE/APAP (10/325) TAB PO ×3 (02:36→21:40)
[2018-06-09] MEDS: morphine 4 MG/ML VIAL IV ×2 (05:26→19:54)
[2018-06-09] MEDS ORDERED: METOCLOPRAMIDE 10 MG INJ (07:00)
[2018-06-09] MEDS: LEVOFLOXACIN 500 MG TAB PO (07:00)
[2018-06-09 07:29] LABS: ADD MAN DIFF? NO
[2018-06-09] MEDS: CALCIUM ACETATE 667 MG CAP PO ×3 (07:35→17:14)
[2018-06-09 07:36] LABS: WHITE BLOOD COUNT 4.5 10^3/ul (4.8-10.8)
[2018-06-09 07:36] LABS: ABNORMAL IP MESSAGE 1; BASOPHILS % 0.7 % (0.0-2.0); EOSINOPHILS # 0.2 10^3/ul (0.0-0.5); HEMATOCRIT 30.3 % (37.0-47.0); HEMOGLOBIN 8.7 g/dl (12.0-16.0); LYMPHOCYTES # 0.8 10^3/ul (0.8-2.9); LYMPHOCYTES % 16.8 % (15.0-51.0); MEAN CORPUSCULAR HEMOGLOBIN 25.7 pg (29.0-33.0); MEAN CORPUSCULAR HGB CONC 28.7 g/dl (32.0-37.0); MEAN CORPUSCULAR VOLUME 89.6 fl (82.0-101.0); MEAN PLATELET VOLUME 9.5 fl (7.4-10.4); MONOCYTE # 0.6 10^3/ul (0.3-0.9); MONOCYTES % 13.5 % (0.0-11.0); NEUTROPHIL # 2.9 10^3/ul (1.6-7.5); NEUTROPHILS % 64.8 % (39.0-77.0); PLATELET COUNT 110 10^3/UL (140-415); RED BLOOD COUNT 3.38 10^6/ul (4.20-5.40); RED CELL DISTRIBUTION WIDTH 23.6 % (11.5-14.5)
[2018-06-09 07:43] LABS: POSITIVE DIFF @See below
[2018-06-09 07:52] LABS: ANION GAP 8 (5-13); BLOOD UREA NITROGEN 57 mg/dl (7-20); CALCIUM 8.7 mg/dl (8.4-10.2); CARBON DIOXIDE 25 mmol/L (21-31); CHLORIDE 97 mmol/L (97-110); CREATININE 4.98 mg/dl (0.44-1.00); Estimated GFR 9 mL/min (>60); GLUCOSE 89 mg/dl (70-220); PHOSPHORUS 4.9 mg/dl (2.5-4.9); SODIUM 130 mmol/L (135-144)
[2018-06-09 07:54] LABS: INR 1.06; PROTIME 13.9 Sec (11.9-14.9); PT RATIO 1.1
[2018-06-09 08:03] LABS: PARTIAL THROMBOPLASTIN TIME 37.1 Sec (23.0-35.0)
[2018-06-09] MEDS: clonAZEPAM 0.5 MG TAB PO ×2 (09:00→21:40)
[2018-06-09] MEDS: BISACODYL (EC) 5 MG TAB PO (09:00)
[2018-06-09] MEDS: LOSARTAN 50 MG TAB PO (09:00)
[2018-06-09] MEDS: METOPROLOL 25 MG TAB PO ×2 (09:00→21:00)
[2018-06-09] MEDS ORDERED: GELATIN SIZE 100 SPONGE (12:28)
[2018-06-09] MEDS ORDERED: THROMBIN 5000 UNIT VIAL (12:29)
[2018-06-09] MEDS ORDERED: LIDOCAINE 1% (MPF) 30 ML INJ (12:29)
[2018-06-09] MEDS: HEPARIN 1000 UNITS/ML 10 ML INJ CATHETER (12:33)
[2018-06-09] MEDS ORDERED: ROPIVACAINE 0.2% 20 ML VIAL (12:51)
[2018-06-09] MEDS ORDERED: MIDAZOLAM 1 MG/ML 2 ML INJ (12:52)
[2018-06-09] MEDS ORDERED: PROPOFOL 20 ML ×2 (12:52→14:21)
[2018-06-09] MEDS ORDERED: FENTAnyl 50 MCG/ML VIAL ×2 (12:52→13:22)
[2018-06-09] MEDS ORDERED: FENTAnyl 50 MCG/ML VIAL IV ×2 (13:00)
[2018-06-09] MEDS: SOD FERRIC GLUC COMPLX 125 MG in SOD CHLORIDE 0.9% 100 ML IVPB (13:00)
[2018-06-09] MEDS: LEVOFLOXACIN 500MG/D5W (PMX) 100 ML IVPB (13:27)
[2018-06-09] MEDS ORDERED: EPHEDrine SULFATE 50 MG/5 ML SYG (13:38)
[2018-06-09] MEDS: HEPARIN 1000 UNITS/ML 10 ML INJ (13:55)
[2018-06-09] MEDS: BACITRACIN/POLYMYXIN 28.35 GM OINT TOP (14:20)
[2018-06-09] MEDS: FENTAnyl 50 MCG/ML VIAL IV ×2 (14:53→16:53)
[2018-06-09] MEDS: ONDANSETRON 4 MG INJ IV (14:53)
[2018-06-09] MEDS: EPOETIN 10000 UNITS/1 ML INJ (ESRD) SC (17:15)
[2018-06-09] MEDS: ATORVASTATIN 20 MG TAB PO (21:40)
[2018-06-09] MEDS: SENNA TAB PO (21:40)
[2018-06-10] MEDS: morphine 4 MG/ML VIAL IV ×2 (05:53→16:14)
[2018-06-10 06:34] LABS: ADD MAN DIFF? NO
[2018-06-10 06:45] LABS: ABNORMAL IP MESSAGE 1; BASOPHILS % 0.9 % (0.0-2.0); EOSINOPHILS # 0.1 10^3/ul (0.0-0.5); EOSINOPHILS % 1.7 % (0.0-7.0); HEMATOCRIT 29.4 % (37.0-47.0); HEMOGLOBIN 8.3 g/dl (12.0-16.0); LYMPHOCYTES # 0.5 10^3/ul (0.8-2.9); LYMPHOCYTES % 12.8 % (15.0-51.0); MEAN CORPUSCULAR HEMOGLOBIN 26.2 pg (29.0-33.0); MEAN CORPUSCULAR HGB CONC 28.2 g/dl (32.0-37.0); MEAN CORPUSCULAR VOLUME 92.7 fl (82.0-101.0); MONOCYTE # 0.6 10^3/ul (0.3-0.9); MONOCYTES % 13.2 % (0.0-11.0); NEUTROPHILS % 71.2 % (39.0-77.0); PLATELET COUNT 83 10^3/UL (140-415); RED BLOOD COUNT 3.17 10^6/ul (4.20-5.40)
[2018-06-10 06:45] LABS: WHITE BLOOD COUNT 4.2 10^3/ul (4.8-10.8)
[2018-06-10 07:03] LABS: ANION GAP 12 (5-13); BLOOD UREA NITROGEN 44 mg/dl (7-20); CALCIUM 8.8 mg/dl (8.4-10.2); CARBON DIOXIDE 29 mmol/L (21-31); CHLORIDE 96 mmol/L (97-110); CREATININE 4.51 mg/dl (0.44-1.00); Estimated GFR 10 mL/min (>60); GLUCOSE 95 mg/dl (70-220); POTASSIUM 5.3 mmol/L (3.5-5.1); SODIUM 137 mmol/L (135-144)
[2018-06-10 07:10] LABS: POSITIVE DIFF @See below
[2018-06-10] MEDS: BISACODYL (EC) 5 MG TAB PO (08:44)
[2018-06-10] MEDS: CALCIUM ACETATE 667 MG CAP PO ×3 (08:45→17:30)
[2018-06-10] MEDS: LOSARTAN 50 MG TAB PO (08:45)
[2018-06-10] MEDS: METOPROLOL 25 MG TAB PO ×2 (08:46→22:13)
[2018-06-10] MEDS: clonAZEPAM 0.5 MG TAB PO ×2 (08:47→22:12)
[2018-06-10] MEDS: HYDROCODONE/APAP (10/325) TAB PO ×3 (08:48→22:10)
[2018-06-10] MEDS ORDERED: VANCOMYCIN 1 GM 250 ML IVPB (10:00)
[2018-06-10 13:31] LABS: PROCALCITONIN 0.41 ng/mL (<0.10)
[2018-06-10] MEDS: SOD FERRIC GLUC COMPLX 125 MG in SOD CHLORIDE 0.9% 100 ML IVPB (13:33)
[2018-06-10] MEDS: MUPIROCIN 2% 22 GM OINT TOP (16:17)
[2018-06-10] MEDS: CIPROFLOXACIN 500 MG TAB PO (17:27)
[2018-06-10] MEDS: ALBUMIN HUMAN 25% 100 ML IV (21:24)
[2018-06-10] MEDS: SENNA TAB PO (22:12)
[2018-06-10] MEDS: HEPARIN 1000 UNITS/ML 10 ML INJ CATHETER (22:12)
[2018-06-10] MEDS: ATORVASTATIN 20 MG TAB PO (22:14)
[2018-06-11] MEDS: morphine 4 MG/ML VIAL IV ×3 (00:31→20:05)
[2018-06-11] MEDS: HYDROCODONE/APAP (10/325) TAB PO ×5 (02:54→21:57)
[2018-06-11 06:10] LABS: ADD MAN DIFF? NO
[2018-06-11 06:45] LABS: ANION GAP 7 (5-13); BLOOD UREA NITROGEN 35 mg/dl (7-20); CALCIUM 8.5 mg/dl (8.4-10.2); CARBON DIOXIDE 28 mmol/L (21-31); CHLORIDE 101 mmol/L (97-110); Estimated GFR 15 mL/min (>60); GLUCOSE 89 mg/dl (70-220); POTASSIUM 5.2 mmol/L (3.5-5.1); SODIUM 136 mmol/L (135-144)
[2018-06-11] MEDS: clonAZEPAM 0.5 MG TAB PO ×3 (08:42→21:55)
[2018-06-11] MEDS: CALCIUM ACETATE 667 MG CAP PO ×3 (08:43→17:11)
[2018-06-11] MEDS: BISACODYL (EC) 5 MG TAB PO (08:44)
[2018-06-11] MEDS: METOPROLOL 25 MG TAB PO ×2 (08:44→21:55)
[2018-06-11] MEDS: LOSARTAN 50 MG TAB PO (08:44)
[2018-06-11 09:24] LABS: WHITE BLOOD COUNT 3.8 10^3/ul (4.8-10.8)
[2018-06-11 09:24] LABS: ABNORMAL IP MESSAGE 1; BASOPHILS % 0.5 % (0.0-2.0); EOSINOPHILS # 0.1 10^3/ul (0.0-0.5); EOSINOPHILS % 2.1 % (0.0-7.0); HEMATOCRIT 29.8 % (37.0-47.0); HEMOGLOBIN 8.5 g/dl (12.0-16.0); LYMPHOCYTES # 0.4 10^3/ul (0.8-2.9); LYMPHOCYTES % 10.5 % (15.0-51.0); MEAN CORPUSCULAR HEMOGLOBIN 26.7 pg (29.0-33.0); MEAN CORPUSCULAR HGB CONC 28.5 g/dl (32.0-37.0); MEAN CORPUSCULAR VOLUME 93.7 fl (82.0-101.0); MEAN PLATELET VOLUME 9.9 fl (7.4-10.4); MONOCYTE # 0.5 10^3/ul (0.3-0.9); MONOCYTES % 13.9 % (0.0-11.0); NEUTROPHIL # 2.8 10^3/ul (1.6-7.5); NEUTROPHILS % 72.7 % (39.0-77.0); PLATELET COUNT 65 10^3/UL (140-415); RED BLOOD COUNT 3.18 10^6/ul (4.20-5.40); RED CELL DISTRIBUTION WIDTH 25.1 % (11.5-14.5)
[2018-06-11 09:25] LABS: POSITIVE DIFF @See below
[2018-06-11] MEDS: HEPARIN 1000 UNITS/ML 10 ML INJ CATHETER (12:07)
[2018-06-11] MEDS: SOD FERRIC GLUC COMPLX 125 MG in SOD CHLORIDE 0.9% 100 ML IVPB (13:51)
[2018-06-11] MEDS: MUPIROCIN 2% 22 GM OINT TOP (15:01)
[2018-06-11] MEDS: CIPROFLOXACIN 500 MG TAB PO ×2 (17:11→18:50)
[2018-06-11] MEDS: EPOETIN 10000 UNITS/1 ML INJ (ESRD) SC (17:12)
[2018-06-11] MEDS: ATORVASTATIN 20 MG TAB PO (21:55)
[2018-06-11] MEDS: SENNA TAB PO (21:55)
[2018-06-11] MEDS: HEPARIN 5,000 UNIT/1 ML VIAL SC (21:56)
[2018-06-12] MEDS: morphine 4 MG/ML VIAL IV ×2 (00:53→23:55)
[2018-06-12] MEDS: HYDROCODONE/APAP (10/325) TAB PO ×5 (03:38→22:09)
[2018-06-12 06:05] LABS: ADD MAN DIFF? NO
[2018-06-12 06:22] LABS: ABNORMAL IP MESSAGE 1; BASOPHILS % 0.6 % (0.0-2.0); EOSINOPHILS # 0.1 10^3/ul (0.0-0.5); EOSINOPHILS % 2.4 % (0.0-7.0); HEMATOCRIT 28.5 % (37.0-47.0); HEMOGLOBIN 8.2 g/dl (12.0-16.0); LYMPHOCYTES # 0.5 10^3/ul (0.8-2.9); MEAN CORPUSCULAR HEMOGLOBIN 26.8 pg (29.0-33.0); MEAN CORPUSCULAR HGB CONC 28.8 g/dl (32.0-37.0); MEAN CORPUSCULAR VOLUME 93.1 fl (82.0-101.0); MONOCYTE # 0.5 10^3/ul (0.3-0.9); MONOCYTES % 14.1 % (0.0-11.0); NEUTROPHIL # 2.2 10^3/ul (1.6-7.5); NEUTROPHILS % 67.6 % (39.0-77.0); PLATELET COUNT 73 10^3/UL (140-415); RED BLOOD COUNT 3.06 10^6/ul (4.20-5.40); RED CELL DISTRIBUTION WIDTH 25.2 % (11.5-14.5)
[2018-06-12 06:22] LABS: WHITE BLOOD COUNT 3.3 10^3/ul (4.8-10.8)
[2018-06-12 06:55] LABS: POSITIVE DIFF @See below
[2018-06-12 07:23] LABS: ANION GAP 6 (5-13); BLOOD UREA NITROGEN 25 mg/dl (7-20); CALCIUM 8.7 mg/dl (8.4-10.2); CARBON DIOXIDE 28 mmol/L (21-31); CHLORIDE 99 mmol/L (97-110); CREATININE 2.56 mg/dl (0.44-1.00); Estimated GFR 19 mL/min (>60); GLUCOSE 85 mg/dl (70-220); PHOSPHORUS 3.6 mg/dl (2.5-4.9); SODIUM 133 mmol/L (135-144)
[2018-06-12] MEDS: CALCIUM ACETATE 667 MG CAP PO ×3 (07:46→17:33)
[2018-06-12 07:47] LABS: POTASSIUM 4.6 mmol/L (3.5-5.1)
[2018-06-12] MEDS: LOSARTAN 50 MG TAB PO (09:05)
[2018-06-12] MEDS: clonAZEPAM 0.5 MG TAB PO ×2 (09:06→21:06)
[2018-06-12] MEDS: METOPROLOL 25 MG TAB PO ×2 (09:06→21:08)
[2018-06-12] MEDS: HEPARIN 5,000 UNIT/1 ML VIAL SC ×2 (09:09→21:10)
[2018-06-12] MEDS: MUPIROCIN 2% 22 GM OINT TOP (13:00)
[2018-06-12] MEDS: SOD FERRIC GLUC COMPLX 125 MG in SOD CHLORIDE 0.9% 100 ML IVPB (14:50)
[2018-06-12] MEDS: ATORVASTATIN 20 MG TAB PO (21:06)
[2018-06-12] MEDS: SENNA TAB PO (21:06)
[2018-06-13] MEDS: HYDROCODONE/APAP (10/325) TAB PO ×5 (02:23→23:08)
[2018-06-13 07:15] LABS: ADD MAN DIFF? NO
[2018-06-13 07:19] LABS: ABNORMAL IP MESSAGE 1; BASOPHILS % 0.8 % (0.0-2.0); EOSINOPHILS # 0.1 10^3/ul (0.0-0.5); EOSINOPHILS % 3.6 % (0.0-7.0); HEMATOCRIT 32.4 % (37.0-47.0); HEMOGLOBIN 9.3 g/dl (12.0-16.0); LYMPHOCYTES # 0.7 10^3/ul (0.8-2.9); LYMPHOCYTES % 16.5 % (15.0-51.0); MEAN CORPUSCULAR HEMOGLOBIN 26.7 pg (29.0-33.0); MEAN CORPUSCULAR HGB CONC 28.7 g/dl (32.0-37.0); MEAN CORPUSCULAR VOLUME 93.1 fl (82.0-101.0); MONOCYTE # 0.5 10^3/ul (0.3-0.9); MONOCYTES % 13.2 % (0.0-11.0); NEUTROPHIL # 2.6 10^3/ul (1.6-7.5); NEUTROPHILS % 65.4 % (39.0-77.0); PLATELET COUNT 88 10^3/UL (140-415); RED BLOOD COUNT 3.48 10^6/ul (4.20-5.40); RED CELL DISTRIBUTION WIDTH 25.4 % (11.5-14.5)
[2018-06-13 07:19] LABS: WHITE BLOOD COUNT 3.9 10^3/ul (4.8-10.8)
[2018-06-13 07:23] LABS: POSITIVE DIFF @See below
[2018-06-13 07:47] LABS: ANION GAP 12 (5-13); BLOOD UREA NITROGEN 34 mg/dl (7-20); CALCIUM 8.9 mg/dl (8.4-10.2); CARBON DIOXIDE 27 mmol/L (21-31); CHLORIDE 95 mmol/L (97-110); CREATININE 3.25 mg/dl (0.44-1.00); Estimated GFR 14 mL/min (>60); GLUCOSE 77 mg/dl (70-220); PHOSPHORUS 4.1 mg/dl (2.5-4.9); POTASSIUM 5.1 mmol/L (3.5-5.1); SODIUM 134 mmol/L (135-144)
[2018-06-13] MEDS: CALCIUM ACETATE 667 MG CAP PO ×3 (08:32→17:58)
[2018-06-13] MEDS: LOSARTAN 50 MG TAB PO (08:32)
[2018-06-13] MEDS: METOPROLOL 25 MG TAB PO ×2 (08:33→21:53)
[2018-06-13] MEDS: HEPARIN 5,000 UNIT/1 ML VIAL SC (08:33)
[2018-06-13] MEDS: MUPIROCIN 2% 22 GM OINT TOP (08:33)
[2018-06-13] MEDS: clonAZEPAM 0.5 MG TAB PO ×2 (09:00→21:51)
[2018-06-13] MEDS: HEPARIN 1000 UNITS/ML 10 ML INJ CATHETER (12:15)
[2018-06-13] MEDS: morphine 4 MG/ML VIAL IV (20:22)
[2018-06-13] MEDS: SENNA TAB PO (21:52)
[2018-06-13] MEDS: ATORVASTATIN 20 MG TAB PO (21:52)
[2018-06-14] MEDS: morphine 4 MG/ML VIAL IV ×2 (00:49→22:39)
[2018-06-14] MEDS: HYDROCODONE/APAP (10/325) TAB PO ×5 (03:23→21:52)
[2018-06-14 06:02] LABS: ADD MAN DIFF? NO
[2018-06-14 06:12] LABS: ABNORMAL IP MESSAGE 1; BASOPHILS % 0.8 % (0.0-2.0); EOSINOPHILS # 0.1 10^3/ul (0.0-0.5); EOSINOPHILS % 2.5 % (0.0-7.0); HEMATOCRIT 31.5 % (37.0-47.0); HEMOGLOBIN 9.2 g/dl (12.0-16.0); LYMPHOCYTES # 0.6 10^3/ul (0.8-2.9); LYMPHOCYTES % 16.1 % (15.0-51.0); MEAN CORPUSCULAR HEMOGLOBIN 27.3 pg (29.0-33.0); MEAN CORPUSCULAR HGB CONC 29.2 g/dl (32.0-37.0); MEAN CORPUSCULAR VOLUME 93.5 fl (82.0-101.0); MEAN PLATELET VOLUME 9.2 fl (7.4-10.4); MONOCYTE # 0.5 10^3/ul (0.3-0.9); MONOCYTES % 13.9 % (0.0-11.0); NEUTROPHIL # 2.4 10^3/ul (1.6-7.5); NEUTROPHILS % 66.4 % (39.0-77.0); PLATELET COUNT 78 10^3/UL (140-415); RED BLOOD COUNT 3.37 10^6/ul (4.20-5.40); RED CELL DISTRIBUTION WIDTH 25.2 % (11.5-14.5)
[2018-06-14 06:12] LABS: WHITE BLOOD COUNT 3.6 10^3/ul (4.8-10.8)
[2018-06-14 06:25] LABS: ANION GAP 9 (5-13); BLOOD UREA NITROGEN 31 mg/dl (7-20); CALCIUM 8.8 mg/dl (8.4-10.2); CARBON DIOXIDE 30 mmol/L (21-31); CHLORIDE 97 mmol/L (97-110); CREATININE 2.98 mg/dl (0.44-1.00); Estimated GFR 16 mL/min (>60); GLUCOSE 82 mg/dl (70-220); POTASSIUM 4.8 mmol/L (3.5-5.1); SODIUM 136 mmol/L (135-144)
[2018-06-14 06:28] LABS: POSITIVE DIFF @See below
[2018-06-14] MEDS: clonAZEPAM 0.5 MG TAB PO ×2 (08:13→21:52)
[2018-06-14] MEDS: CALCIUM ACETATE 667 MG CAP PO ×3 (08:13→17:19)
[2018-06-14] MEDS: LOSARTAN 50 MG TAB PO (08:16)
[2018-06-14] MEDS: METOPROLOL 25 MG TAB PO (08:17)
[2018-06-14] MEDS: MUPIROCIN 2% 22 GM OINT TOP (08:17)
[2018-06-14] MEDS: HEPARIN 1000 UNITS/ML 10 ML INJ CATHETER (17:25)
[2018-06-14] MEDS: EPOETIN 10000 UNITS/1 ML INJ (ESRD) SC (19:01)
[2018-06-14] MEDS: METOPROLOL 50 MG TAB PO (21:51)
[2018-06-14] MEDS: SENNA TAB PO (21:51)
[2018-06-14] MEDS: ATORVASTATIN 20 MG TAB PO (21:52)
[2018-06-14] MEDS: hydrALAzine 20 MG INJ IV (23:34)
[2018-06-15] MEDS: HYDROCODONE/APAP (10/325) TAB PO ×4 (03:08→17:03)
[2018-06-15] MEDS: morphine 4 MG/ML VIAL IV (04:19)
[2018-06-15] MEDS: hydrALAzine 20 MG INJ IV (05:18)
[2018-06-15] MEDS: CALCIUM ACETATE 667 MG CAP PO ×3 (08:32→17:31)
[2018-06-15] MEDS: MUPIROCIN 2% 22 GM OINT TOP (08:34)
[2018-06-15] MEDS: clonAZEPAM 0.5 MG TAB PO (08:34)
[2018-06-15] MEDS: METOPROLOL 50 MG TAB PO (08:38)
[2018-06-15] MEDS: LOSARTAN 50 MG TAB PO (08:38)
[2018-06-15 10:13] LABS: ADD MAN DIFF? NO
[2018-06-15 10:22] LABS: WHITE BLOOD COUNT 4.3 10^3/ul (4.8-10.8)
[2018-06-15 10:22] LABS: ABNORMAL IP MESSAGE 1; BASOPHILS % 0.9 % (0.0-2.0); EOSINOPHILS # 0.1 10^3/ul (0.0-0.5); EOSINOPHILS % 2.3 % (0.0-7.0); HEMATOCRIT 35.2 % (37.0-47.0); HEMOGLOBIN 10.2 g/dl (12.0-16.0); LYMPHOCYTES # 0.5 10^3/ul (0.8-2.9); LYMPHOCYTES % 12.1 % (15.0-51.0); MEAN CORPUSCULAR HEMOGLOBIN 27.1 pg (29.0-33.0); MEAN CORPUSCULAR VOLUME 93.6 fl (82.0-101.0); MEAN PLATELET VOLUME 9.5 fl (7.4-10.4); MONOCYTE # 0.5 10^3/ul (0.3-0.9); MONOCYTES % 12.3 % (0.0-11.0); NEUTROPHIL # 3.1 10^3/ul (1.6-7.5); NEUTROPHILS % 72.2 % (39.0-77.0); POSITIVE DIFF @See below; RED BLOOD COUNT 3.76 10^6/ul (4.20-5.40); RED CELL DISTRIBUTION WIDTH 24.4 % (11.5-14.5)
[2018-06-15 10:23] LABS: PLATELET COUNT 95 10^3/UL (140-415)
[2018-06-15 10:31] LABS: ANION GAP 7 (5-13); BLOOD UREA NITROGEN 21 mg/dl (7-20); CALCIUM 8.7 mg/dl (8.4-10.2); CARBON DIOXIDE 30 mmol/L (21-31); CHLORIDE 96 mmol/L (97-110); CREATININE 2.13 mg/dl (0.44-1.00); Estimated GFR 23 mL/min (>60); GLUCOSE 153 mg/dl (70-220); POTASSIUM 3.9 mmol/L (3.5-5.1); SODIUM 133 mmol/L (135-144)
== END 2018-06-15 20:49 | DRG 252 ==
LOC: 6WM 06-04 07:20 → E/R 07:40 → PP2 06-06 16:20 → ICU 12:20
PROVIDERS: Orthopaedic Surgery
PROC: 05743ZZ Dilation of Left Innominate Vein, Percutaneous Approach (ICD-10-PCS; principal; 2018-06-03 07:06)
PROC: 05LC0ZZ Occlusion of Left Basilic Vein, Open Approach (ICD-10-PCS; 2018-06-03 07:06)
PROC: 0JH63XZ Insertion of Tunneled Vascular Access Device into Chest Subcutaneous Tissue and Fascia, Percutaneous Approach (ICD-10-PCS; 2018-06-03 07:06)
PROC: 02H633Z Insertion of Infusion Device into Right Atrium, Percutaneous Approach (ICD-10-PCS; 2018-06-03 07:06)
PROC: B214YZZ Fluoroscopy of Right Heart using Other Contrast (ICD-10-PCS; 2018-06-03 07:06)
PROC: B50WYZZ Plain Radiography of Dialysis Shunt/Fistula using Other Contrast (ICD-10-PCS; 2018-06-03 07:06)
PROC: 0HDCXZZ Extraction of Left Upper Arm Skin, External Approach (ICD-10-PCS; 2018-06-03 07:06)
PROC: 30233N1 Transfusion of Nonautologous Red Blood Cells into Peripheral Vein, Percutaneous Approach (ICD-10-PCS; 2018-06-03 07:06)
PROC: 30233K1 Transfusion of Nonautologous Frozen Plasma into Peripheral Vein, Percutaneous Approach (ICD-10-PCS; 2018-06-03 07:06)
PROC: 5A1D70Z Performance of Urinary Filtration, Intermittent, Less than 6 Hours Per Day (ICD-10-PCS; 2018-06-03 07:06)
DX: T82.838A Hemorrhage due to vascular prosthetic devices, implants and grafts, initial encounter (principal); N18.6 End stage renal disease; J18.9 Pneumonia, unspecified organism; I12.0 Hypertensive chronic kidney disease with stage 5 chronic kidney disease or end stage renal disease; D62 Acute posthemorrhagic anemia; J90 Pleural effusion, not elsewhere classified; D68.9 Coagulation defect, unspecified; N25.81 Secondary hyperparathyroidism of renal origin; J98.11 Atelectasis; I82.290 Acute embolism and thrombosis of other thoracic veins; D63.1 Anemia in chronic kidney disease; D69.6 Thrombocytopenia, unspecified; D50.9 Iron deficiency anemia, unspecified; E87.5 Hyperkalemia; E11.22 Type 2 diabetes mellitus with diabetic chronic kidney disease; E03.9 Hypothyroidism, unspecified; E87.6 Hypokalemia; E87.70 Fluid overload, unspecified; E11.51 Type 2 diabetes mellitus with diabetic peripheral angiopathy without gangrene; E78.5 Hyperlipidemia, unspecified; F41.1 Generalized anxiety disorder; F17.200 Nicotine dependence, unspecified, uncomplicated; G89.4 Chronic pain syndrome; I27.20 Pulmonary hypertension, unspecified; L98.499 Non-pressure chronic ulcer of skin of other sites with unspecified severity; T82.7XXA Infection and inflammatory reaction due to other cardiac and vascular devices, implants and grafts, initial encounter; L08.9 Local infection of the skin and subcutaneous tissue, unspecified; B96.4 Proteus (mirabilis) (morganii) as the cause of diseases classified elsewhere; R53.81 Other malaise; R00.1 Bradycardia, unspecified; R01.1 Cardiac murmur, unspecified; R60.0 Localized edema; Z74.09 Other reduced mobility; Z99.2 Dependence on renal dialysis
CPT/HCPCS: 36415; 36430; 36907; 71045; 80048; 80053; 80162; 80202; 82728; 83540; 83735; 84100; 84145; 84439; 84443; 84481; 84484; 85025; 85610; 85730; 86644; 86706; 86850; 86900; 86901; 86920; 86945; 87070; 87081; 87340; 90935; 93005; 93306; 93970; 96374; 97110; 97116; 97161; 97530; 99291-25

== ENCOUNTER 2018-06-15 20:45 | Inpatient (IN) | payer MEDICARE, OTHER ==
[2018-06-15] MEDS ORDERED: ALBUMIN HUMAN 25% 100 ML IVPB (23:00)
[2018-06-15] MEDS: clonAZEPAM 0.5 MG TAB PO (23:01)
[2018-06-15] MEDS: HYDROCODONE/APAP (10/325) TAB PO (23:01)
[2018-06-15] MEDS: SENNA TAB PO (23:01)
[2018-06-15] MEDS: METOPROLOL 50 MG TAB PO (23:02)
[2018-06-15] MEDS: ATORVASTATIN 20 MG TAB PO (23:05)
[2018-06-16 01:02] LABS: ADD UMIC YES; UR ASCORBIC ACID NEGATIVE (NEGATIVE); UR BACTERIA FEW /HPF (NONE SEEN); UR BILIRUBIN (Dip) NEGATIVE (NEGATIVE); UR BLOOD (Dip) 2+ mg/dL (NEGATIVE); UR CLARITY TURBID (CLEAR); UR COLOR YELLOW (YELLOW); UR GLUCOSE (Dip) NEGATIVE (NEGATIVE); UR KETONES (Dip) NEGATIVE (NEGATIVE); UR LEUKOCYTE ESTERASE (Dip) 3+ Leu/ul (NEGATIVE); UR MUCUS FEW /HPF (NONE SEEN); UR NITRITE (Dip) NEGATIVE (NEGATIVE); UR NONSQUAMOUS EPITHELIAL CELL 5 /HPF (NONE SEEN); UR RBC 57 /HPF (0-5); UR SPECIFIC GRAVITY (Dip) 1.008 (1.003-1.030); UR SQUAMOUS EPITHELIAL CELL MODERATE /HPF (FEW); UR TOTAL PROTEIN (Dip) 2+ mg/dl (NEGATIVE); UR UROBILINOGEN (Dip) NEGATIVE (NEGATIVE); UR WBC > 182 /HPF (0-5)
[2018-06-16] MEDS: morphine 2 MG INJ IV ×3 (01:29→21:06)
[2018-06-16] MEDS: HYDROCODONE/APAP (10/325) TAB PO ×4 (04:59→22:12)
[2018-06-16 06:51] LABS: WHITE BLOOD COUNT 4.3 10^3/ul (4.8-10.8)
[2018-06-16 06:51] LABS: ABNORMAL IP MESSAGE 1; HEMATOCRIT 33.6 % (37.0-47.0); HEMOGLOBIN 9.7 g/dl (12.0-16.0); MEAN CORPUSCULAR HEMOGLOBIN 27.5 pg (29.0-33.0); MEAN CORPUSCULAR HGB CONC 28.9 g/dl (32.0-37.0); MEAN CORPUSCULAR VOLUME 95.2 fl (82.0-101.0); MEAN PLATELET VOLUME 10.6 fl (7.4-10.4); RED BLOOD COUNT 3.53 10^6/ul (4.20-5.40); RED CELL DISTRIBUTION WIDTH 23.9 % (11.5-14.5)
[2018-06-16 06:57] LABS: ADD MAN DIFF? YES; PLATELET COUNT 57 10^3/UL (140-415); POSITIVE DIFF @See below
[2018-06-16 07:17] LABS: ALANINE AMINOTRANSFERASE 16 IU/L (13-69); ALBUMIN/GLOBULIN RATIO 1.11; ALKALINE PHOSPHATASE 65 IU/L (42-121); ANION GAP 9 (5-13); ASPARTATE AMINO TRANSFERASE 32 IU/L (15-46); BILIRUBIN,INDIRECT 0.1 mg/dl (0-1.1); BILIRUBIN,TOTAL 0.1 mg/dl (0.2-1.3); BLOOD UREA NITROGEN 35 mg/dl (7-20); CALCIUM 8.6 mg/dl (8.4-10.2); CARBON DIOXIDE 25 mmol/L (21-31); CHLORIDE 98 mmol/L (97-110); Estimated GFR 14 mL/min (>60); GLUCOSE 81 mg/dl (70-220); POTASSIUM 4.9 mmol/L (3.5-5.1); SODIUM 132 mmol/L (135-144); TOTAL PROTEIN 5.7 g/dl (6.1-8.1)
[2018-06-16] MEDS: clonAZEPAM 0.5 MG TAB PO ×2 (08:05→22:10)
[2018-06-16] MEDS: CALCIUM ACETATE 667 MG CAP PO ×3 (08:05→17:22)
[2018-06-16] MEDS: LOSARTAN 50 MG TAB PO (08:06)
[2018-06-16] MEDS: METOPROLOL 50 MG TAB PO ×2 (08:07→22:12)
[2018-06-16 08:15] LABS: ANISOCYTOSIS 2+ (0-0); BAND NEUTROPHILS #M 0.2 10^3/ul (0.0-0.6); BAND NEUTROPHILS % (M) 5 % (0-4); BASOPHILS % (M) 2 % (0-2); EOSINOPHILS % (M) 3 % (0-7); HYPOCHROMASIA 1+ (0-0); LYMPHOCYTES #M 0.5 10^3/ul (0.8-2.9); LYMPHOCYTES % (M) 12 % (15-51); METAMYELOCYTES #M 0.1 10^3/ul (0.0-0.0); METAMYELOCYTES %M 3 % (0-0); MICROCYTOSIS 1+ (0-0); MONOCYTE #M 0.5 10^3/ul (0.3-0.9); MONOCYTES % (M) 12 % (0-11); OVALOCYTES 1+ (0-0); PLATELET ESTIMATE DECREASED; POIKILOCYTOSIS 2+ (0-0); POLYCHROMASIA 1+ (0-0); SEG NEUT #M 2.7 10^3/ul (1.6-7.5); SEGMENTED NEUTROPHILS (M) % 63 % (39-77); SMUDGE%M 8 % (0-0)
[2018-06-16] MEDS: MUPIROCIN 2% 22 GM OINT TOP (08:18)
[2018-06-16] MEDS ORDERED: SODIUM CHLORIDE 0.9% 1L BAG IV (12:00)
[2018-06-16] MEDS: HEPARIN 1000 UNITS/ML 10 ML INJ CATHETER (15:12)
[2018-06-16] MEDS: EPOETIN 10000 UNITS/1 ML INJ (ESRD) SC (17:23)
[2018-06-16] MEDS: ATORVASTATIN 20 MG TAB PO (22:11)
[2018-06-16] MEDS: SENNA TAB PO (22:11)
[2018-06-17] MEDS: LEVOFLOXACIN 250 MG TAB PO (01:12)
[2018-06-17] MEDS: morphine 2 MG INJ IV ×3 (01:13→20:54)
[2018-06-17] MEDS: HYDROCODONE/APAP (10/325) TAB PO ×5 (04:12→22:00)
[2018-06-17] MEDS: clonAZEPAM 0.5 MG TAB PO ×2 (08:55→21:58)
[2018-06-17] MEDS: CALCIUM ACETATE 667 MG CAP PO ×3 (08:56→17:11)
[2018-06-17] MEDS: LOSARTAN 50 MG TAB PO (08:56)
[2018-06-17] MEDS: METOPROLOL 50 MG TAB PO ×2 (08:57→21:58)
[2018-06-17] MEDS: MUPIROCIN 2% 22 GM OINT TOP (09:00)
[2018-06-17] MEDS: SENNA TAB PO (21:58)
[2018-06-17] MEDS: ATORVASTATIN 20 MG TAB PO (21:58)
[2018-06-18] MEDS: morphine 2 MG INJ IV ×3 (01:48→20:30)
[2018-06-18] MEDS: HYDROCODONE/APAP (10/325) TAB PO ×5 (03:21→21:27)
[2018-06-18] MEDS: CALCIUM ACETATE 667 MG CAP PO ×3 (08:14→17:14)
[2018-06-18] MEDS: METOPROLOL 50 MG TAB PO ×3 (09:00→20:21)
[2018-06-18] MEDS: MUPIROCIN 2% 22 GM OINT TOP ×2 (09:00→09:26)
[2018-06-18] MEDS: LOSARTAN 50 MG TAB PO (09:26)
[2018-06-18] MEDS: clonAZEPAM 0.5 MG TAB PO ×2 (09:26→20:20)
[2018-06-18] MEDS: EPOETIN 10000 UNITS/1 ML INJ (ESRD) SC (17:16)
[2018-06-18] MEDS: ATORVASTATIN 20 MG TAB PO (20:20)
[2018-06-18] MEDS: SENNA TAB PO (20:20)
[2018-06-18] MEDS: LEVOFLOXACIN 250 MG TAB PO (21:27)
[2018-06-19] MEDS: HYDROCODONE/APAP (10/325) TAB PO ×5 (01:43→21:50)
[2018-06-19] MEDS: CALCIUM ACETATE 667 MG CAP PO ×3 (08:34→17:20)
[2018-06-19] MEDS: clonAZEPAM 0.5 MG TAB PO ×2 (08:38→20:25)
[2018-06-19] MEDS: METOPROLOL 50 MG TAB PO ×2 (08:39→20:26)
[2018-06-19] MEDS: LOSARTAN 50 MG TAB PO (08:39)
[2018-06-19] MEDS: MUPIROCIN 2% 22 GM OINT TOP ×2 (08:40→08:44)
[2018-06-19] MEDS: ATORVASTATIN 20 MG TAB PO (20:25)
[2018-06-19] MEDS: SENNA TAB PO (20:26)
[2018-06-19] MEDS: morphine 2 MG INJ IV (22:45)
[2018-06-19] MEDS: hydrALAzine 20 MG INJ IV (23:51)
[2018-06-20] MEDS: HYDROCODONE/APAP (10/325) TAB PO ×4 (02:50→22:06)
[2018-06-20] MEDS: morphine 2 MG INJ IV (04:43)
[2018-06-20 07:24] LABS: ADD MAN DIFF? NO
[2018-06-20] MEDS: CALCIUM ACETATE 667 MG CAP PO ×3 (07:53→17:42)
[2018-06-20] MEDS: clonAZEPAM 0.5 MG TAB PO ×2 (08:17→21:02)
[2018-06-20] MEDS: LOSARTAN 50 MG TAB PO (08:17)
[2018-06-20] MEDS: METOPROLOL 50 MG TAB PO ×2 (08:18→21:03)
[2018-06-20] MEDS: MUPIROCIN 2% 22 GM OINT TOP (08:18)
[2018-06-20 08:20] LABS: ALANINE AMINOTRANSFERASE 17 IU/L (13-69); ALBUMIN 3.1 g/dl (3.3-4.9); ALKALINE PHOSPHATASE 111 IU/L (42-121); ANION GAP 13 (5-13); ASPARTATE AMINO TRANSFERASE 44 IU/L (15-46); BLOOD UREA NITROGEN 50 mg/dl (7-20); CALCIUM 8.9 mg/dl (8.4-10.2); CARBON DIOXIDE 23 mmol/L (21-31); CHLORIDE 97 mmol/L (97-110); CREATININE 3.85 mg/dl (0.44-1.00); Estimated GFR 12 mL/min (>60); GLUCOSE 83 mg/dl (70-220); POTASSIUM 5.2 mmol/L (3.5-5.1); SODIUM 133 mmol/L (135-144); TOTAL PROTEIN 6.2 g/dl (6.1-8.1)
[2018-06-20 08:41] LABS: WHITE BLOOD COUNT 4.7 10^3/ul (4.8-10.8)
[2018-06-20 08:41] LABS: ABNORMAL IP MESSAGE 1; BASOPHILS % 0.9 % (0.0-2.0); EOSINOPHILS # 0.2 10^3/ul (0.0-0.5); EOSINOPHILS % 3.7 % (0.0-7.0); HEMATOCRIT 37.9 % (37.0-47.0); HEMOGLOBIN 11.1 g/dl (12.0-16.0); LYMPHOCYTES # 0.6 10^3/ul (0.8-2.9); LYMPHOCYTES % 13.1 % (15.0-51.0); MEAN CORPUSCULAR HEMOGLOBIN 27.6 pg (29.0-33.0); MEAN CORPUSCULAR HGB CONC 29.3 g/dl (32.0-37.0); MEAN CORPUSCULAR VOLUME 94.3 fl (82.0-101.0); MONOCYTE # 0.9 10^3/ul (0.3-0.9); MONOCYTES % 19.6 % (0.0-11.0); NEUTROPHIL # 2.9 10^3/ul (1.6-7.5); NEUTROPHILS % 62.5 % (39.0-77.0); RED BLOOD COUNT 4.02 10^6/ul (4.20-5.40); RED CELL DISTRIBUTION WIDTH 21.2 % (11.5-14.5)
[2018-06-20 08:47] LABS: POSITIVE DIFF @See below
[2018-06-20 08:48] LABS: PLATELET COUNT 75 10^3/UL (140-415)
[2018-06-20] MEDS: hydrALAzine 20 MG INJ IV (17:44)
[2018-06-20] MEDS: HEPARIN 1000 UNITS/ML 10 ML INJ CATHETER (18:03)
[2018-06-20] MEDS: morphine SULFATE/PF (2 MG/2 ML) SYG IV (19:53)
[2018-06-20] MEDS: SENNA TAB PO (21:02)
[2018-06-20] MEDS: ATORVASTATIN 20 MG TAB PO (21:03)
[2018-06-21] MEDS: morphine SULFATE/PF (2 MG/2 ML) SYG IV ×2 (00:13→10:57)
[2018-06-21] MEDS: LEVOFLOXACIN 250 MG TAB PO (00:13)
[2018-06-21] MEDS: HYDROCODONE/APAP (10/325) TAB PO ×5 (03:20→22:16)
[2018-06-21] MEDS: LOSARTAN 50 MG TAB PO (08:05)
[2018-06-21] MEDS: clonAZEPAM 0.5 MG TAB PO ×2 (08:05→20:51)
[2018-06-21] MEDS: CALCIUM ACETATE 667 MG CAP PO ×3 (08:06→18:10)
[2018-06-21] MEDS: METOPROLOL 50 MG TAB PO ×2 (08:06→20:53)
[2018-06-21] MEDS: MUPIROCIN 2% 22 GM OINT TOP (08:08)
[2018-06-21] MEDS: HEPARIN 1000 UNITS/ML 10 ML INJ CATHETER (19:12)
[2018-06-21] MEDS: SENNA TAB PO (20:51)
[2018-06-21] MEDS: ATORVASTATIN 20 MG TAB PO (20:51)
[2018-06-21] MEDS: morphine LIQ (10 MG/5 ML) CUP PO ×2 (20:52→22:17)
[2018-06-22] MEDS: morphine LIQ (10 MG/5 ML) CUP PO ×3 (03:12→22:12)
[2018-06-22] MEDS: HYDROCODONE/APAP (10/325) TAB PO ×3 (06:59→21:04)
[2018-06-22] MEDS: CALCIUM ACETATE 667 MG CAP PO ×3 (08:28→17:35)
[2018-06-22] MEDS: clonAZEPAM 0.5 MG TAB PO ×2 (08:28→21:01)
[2018-06-22] MEDS: METOPROLOL 50 MG TAB PO ×2 (08:28→21:02)
[2018-06-22] MEDS: LOSARTAN 50 MG TAB PO (08:29)
[2018-06-22] MEDS: MUPIROCIN 2% 22 GM OINT TOP (08:31)
[2018-06-22] MEDS: hydrALAzine 20 MG INJ IV ×2 (11:36→16:58)
[2018-06-22 17:22] LABS: HEPATITIS B SURFACE ANTIGEN NEGATIVE (NEGATIVE)
[2018-06-22] MEDS: HEPARIN 1000 UNITS/ML 10 ML INJ CATHETER (18:40)
[2018-06-22] MEDS: ATORVASTATIN 20 MG TAB PO (21:01)
[2018-06-22] MEDS: SENNA TAB PO (21:01)
[2018-06-23] MEDS: HYDROCODONE/APAP (10/325) TAB PO ×4 (04:55→22:18)
[2018-06-23] MEDS: hydrALAzine 20 MG INJ IV ×2 (05:19→20:44)
[2018-06-23] MEDS: CALCIUM ACETATE 667 MG CAP PO ×3 (08:44→17:24)
[2018-06-23] MEDS: clonAZEPAM 0.5 MG TAB PO ×2 (08:45→22:14)
[2018-06-23] MEDS: LOSARTAN 50 MG TAB PO (08:50)
[2018-06-23] MEDS: METOPROLOL 50 MG TAB PO ×2 (08:51→22:14)
[2018-06-23] MEDS: MUPIROCIN 2% 22 GM OINT TOP (08:53)
[2018-06-23] MEDS: morphine LIQ (10 MG/5 ML) CUP PO (17:24)
[2018-06-23 19:33] LABS: ADD MAN DIFF? NO
[2018-06-23 19:35] LABS: WHITE BLOOD COUNT 5.2 10^3/ul (4.8-10.8)
[2018-06-23 19:35] LABS: ABNORMAL IP MESSAGE 1; BASOPHILS % 0.8 % (0.0-2.0); EOSINOPHILS # 0.3 10^3/ul (0.0-0.5); EOSINOPHILS % 5.2 % (0.0-7.0); HEMATOCRIT 34.9 % (37.0-47.0); LYMPHOCYTES # 0.5 10^3/ul (0.8-2.9); MEAN CORPUSCULAR HEMOGLOBIN 26.7 pg (29.0-33.0); MEAN CORPUSCULAR HGB CONC 28.7 g/dl (32.0-37.0); MEAN CORPUSCULAR VOLUME 93.1 fl (82.0-101.0); MEAN PLATELET VOLUME 9.5 fl (7.4-10.4); MONOCYTE # 0.7 10^3/ul (0.3-0.9); MONOCYTES % 12.9 % (0.0-11.0); NEUTROPHIL # 3.8 10^3/ul (1.6-7.5); NEUTROPHILS % 71.9 % (39.0-77.0); PLATELET COUNT 79 10^3/UL (140-415); RED BLOOD COUNT 3.75 10^6/ul (4.20-5.40); RED CELL DISTRIBUTION WIDTH 19.7 % (11.5-14.5)
[2018-06-23 19:49] LABS: POSITIVE DIFF @See below
[2018-06-23 19:51] LABS: ALANINE AMINOTRANSFERASE 23 IU/L (13-69); ALBUMIN/GLOBULIN RATIO 1.07; ALKALINE PHOSPHATASE 120 IU/L (42-121); ANION GAP 8 (5-13); ASPARTATE AMINO TRANSFERASE 30 IU/L (15-46); BLOOD UREA NITROGEN 48 mg/dl (7-20); CARBON DIOXIDE 27 mmol/L (21-31); CHLORIDE 94 mmol/L (97-110); CREATININE 3.74 mg/dl (0.44-1.00); Estimated GFR 12 mL/min (>60); GLUCOSE 164 mg/dl (70-220); POTASSIUM 4.7 mmol/L (3.5-5.1); SODIUM 129 mmol/L (135-144); TOTAL PROTEIN 5.8 g/dl (6.1-8.1)
[2018-06-23] MEDS: SENNA TAB PO (22:14)
[2018-06-23] MEDS: ATORVASTATIN 20 MG TAB PO (22:14)
[2018-06-23] MEDS: HEPARIN 1000 UNITS/ML 10 ML INJ CATHETER (22:20)
[2018-06-24] MEDS: HYDROCODONE/APAP (10/325) TAB PO ×4 (03:24→16:42)
[2018-06-24] MEDS: morphine LIQ (10 MG/5 ML) CUP PO ×3 (05:58→20:25)
[2018-06-24] MEDS: CALCIUM ACETATE 667 MG CAP PO ×3 (08:09→16:42)
[2018-06-24] MEDS: MUPIROCIN 2% 22 GM OINT TOP (08:10)
[2018-06-24] MEDS: clonAZEPAM 0.5 MG TAB PO ×2 (08:10→20:24)
[2018-06-24] MEDS: LOSARTAN 50 MG TAB PO (08:18)
[2018-06-24] MEDS: METOPROLOL 50 MG TAB PO ×2 (08:19→20:27)
[2018-06-24] MEDS: SENNA TAB PO (20:24)
[2018-06-24] MEDS: ATORVASTATIN 20 MG TAB PO (20:24)
[2018-06-24] MEDS: DOCUSATE SODIUM 100 MG CAP PO (20:24)
[2018-06-24] MEDS: APIXABAN 5 MG TABLET PO (20:27)
[2018-06-25] MEDS: HYDROCODONE/APAP (10/325) TAB PO ×3 (00:08→12:15)
[2018-06-25] MEDS: MUPIROCIN 2% 22 GM OINT TOP (08:00)
[2018-06-25] MEDS: LOSARTAN 50 MG TAB PO (08:01)
[2018-06-25] MEDS: DOCUSATE SODIUM 100 MG CAP PO ×2 (08:01→21:00)
[2018-06-25] MEDS: CALCIUM ACETATE 667 MG CAP PO ×4 (08:01→17:35)
[2018-06-25] MEDS: clonAZEPAM 0.5 MG TAB PO ×2 (08:01→21:00)
[2018-06-25] MEDS: APIXABAN 5 MG TABLET PO ×2 (08:02→21:26)
[2018-06-25] MEDS: METOPROLOL 50 MG TAB PO ×2 (08:02→21:26)
[2018-06-25 14:26] LABS: ADD MAN DIFF? NO
[2018-06-25 14:30] LABS: WHITE BLOOD COUNT 6.9 10^3/ul (4.8-10.8)
[2018-06-25 14:30] LABS: ABNORMAL IP MESSAGE 1; BASOPHILS % 0.3 % (0.0-2.0); EOSINOPHILS # 0.2 10^3/ul (0.0-0.5); EOSINOPHILS % 3.5 % (0.0-7.0); HEMATOCRIT 39.7 % (37.0-47.0); HEMOGLOBIN 11.3 g/dl (12.0-16.0); LYMPHOCYTES # 0.4 10^3/ul (0.8-2.9); MEAN CORPUSCULAR HGB CONC 28.5 g/dl (32.0-37.0); MEAN CORPUSCULAR VOLUME 94.7 fl (82.0-101.0); MEAN PLATELET VOLUME 9.6 fl (7.4-10.4); MONOCYTE # 0.8 10^3/ul (0.3-0.9); MONOCYTES % 11.5 % (0.0-11.0); NEUTROPHIL # 5.4 10^3/ul (1.6-7.5); NEUTROPHILS % 78.6 % (39.0-77.0); RED BLOOD COUNT 4.19 10^6/ul (4.20-5.40); RED CELL DISTRIBUTION WIDTH 18.6 % (11.5-14.5)
[2018-06-25 14:33] LABS: PLATELET COUNT 80 10^3/UL (140-415); POSITIVE DIFF @See below
[2018-06-25 14:45] LABS: ALANINE AMINOTRANSFERASE 19 IU/L (13-69); ALBUMIN 3.3 g/dl (3.3-4.9); ALBUMIN/GLOBULIN RATIO 1.03; ALKALINE PHOSPHATASE 96 IU/L (42-121); ANION GAP 9 (5-13); ASPARTATE AMINO TRANSFERASE 39 IU/L (15-46); BLOOD UREA NITROGEN 45 mg/dl (7-20); CALCIUM 8.9 mg/dl (8.4-10.2); CARBON DIOXIDE 29 mmol/L (21-31); CHLORIDE 91 mmol/L (97-110); CREATININE 3.73 mg/dl (0.44-1.00); Estimated GFR 12 mL/min (>60); GLUCOSE 84 mg/dl (70-220); POTASSIUM 5.3 mmol/L (3.5-5.1); SODIUM 129 mmol/L (135-144); TOTAL PROTEIN 6.5 g/dl (6.1-8.1)
[2018-06-25] MEDS: ONDANSETRON 4 MG INJ IV (14:57)
[2018-06-25] MEDS: HEPARIN 1000 UNITS/ML 10 ML INJ CATHETER (19:23)
[2018-06-25] MEDS ORDERED: ACETAMINOPHEN 500 MG TAB PO (21:00)
[2018-06-25] MEDS: ATORVASTATIN 20 MG TAB PO (21:00)
[2018-06-25] MEDS: SENNA TAB PO (21:00)
[2018-06-25] MEDS: QUETIAPINE 25 MG TAB PO (21:23)
[2018-06-25] MEDS ORDERED: morphine LIQ (10 MG/5 ML) CUP PO (21:30)
[2018-06-26 07:28] LABS: ABNORMAL IP MESSAGE 1; HEMATOCRIT 36.1 % (37.0-47.0); HEMOGLOBIN 10.3 g/dl (12.0-16.0); MEAN CORPUSCULAR HGB CONC 28.5 g/dl (32.0-37.0); MEAN CORPUSCULAR VOLUME 94.5 fl (82.0-101.0); MEAN PLATELET VOLUME 10.1 fl (7.4-10.4); PLATELET COUNT 66 10^3/UL (140-415); RED BLOOD COUNT 3.82 10^6/ul (4.20-5.40); RED CELL DISTRIBUTION WIDTH 18.7 % (11.5-14.5)
[2018-06-26 07:28] LABS: WHITE BLOOD COUNT 10.4 10^3/ul (4.8-10.8)
[2018-06-26 07:30] LABS: ADD MAN DIFF? YES; POSITIVE DIFF @See below
[2018-06-26 08:01] LABS: ALANINE AMINOTRANSFERASE 18 IU/L (13-69); ALBUMIN 3.2 g/dl (3.3-4.9); ALBUMIN/GLOBULIN RATIO 1.03; ALKALINE PHOSPHATASE 107 IU/L (42-121); ANION GAP 10 (5-13); ASPARTATE AMINO TRANSFERASE 18 IU/L (15-46); BLOOD UREA NITROGEN 34 mg/dl (7-20); CALCIUM 8.8 mg/dl (8.4-10.2); CARBON DIOXIDE 28 mmol/L (21-31); CHLORIDE 95 mmol/L (97-110); CREATININE 3.22 mg/dl (0.44-1.00); Estimated GFR 14 mL/min (>60); GLUCOSE 171 mg/dl (70-220); POTASSIUM 4.6 mmol/L (3.5-5.1); SODIUM 133 mmol/L (135-144); TOTAL PROTEIN 6.3 g/dl (6.1-8.1)
[2018-06-26 08:38] LABS: ANISOCYTOSIS 1+ (0-0); BAND NEUTROPHILS #M 1.5 10^3/ul (0.0-0.6); BAND NEUTROPHILS % (M) 15 % (0-4); GIANT THROMBO% (M) 2 % (0-0); LYMPHOCYTES #M 0.4 10^3/ul (0.8-2.9); LYMPHOCYTES % (M) 4 % (15-51); MONOCYTE #M 0.6 10^3/ul (0.3-0.9); MONOCYTES % (M) 6 % (0-11); PLATELET ESTIMATE SIG DECREASED; POIKILOCYTOSIS 1+ (0-0); POLYCHROMASIA 2+ (0-0); PROMYELOCYTES #M 0.1 10^3/ul (0-0); PROMYELOCYTES % (M) 1 % (0-0); REACTIVE LYMPHOCYTES #M 0.1 10^3/ul (0.0-0.0); REACTIVE LYMPHOCYTES% (M) 1 % (0-0); SEG NEUT #M 7.7 10^3/ul (1.6-7.5); SEGMENTED NEUTROPHILS (M) % 73 % (39-77); SMUDGE%M 12 % (0-0)
[2018-06-26] MEDS: MUPIROCIN 2% 22 GM OINT TOP (09:00)
[2018-06-26] MEDS: DOCUSATE SODIUM 100 MG CAP PO ×2 (09:19→21:35)
[2018-06-26] MEDS: APIXABAN 5 MG TABLET PO ×2 (09:19→21:36)
[2018-06-26] MEDS: CALCIUM ACETATE 667 MG CAP PO ×3 (09:19→17:10)
[2018-06-26] MEDS: LOSARTAN 50 MG TAB PO (09:20)
[2018-06-26] MEDS: clonAZEPAM 0.5 MG TAB PO ×2 (09:20→21:35)
[2018-06-26] MEDS: METOPROLOL 50 MG TAB PO ×2 (09:20→21:36)
[2018-06-26] MEDS: ACETAMINOPHEN 325 MG TAB PO (16:52)
[2018-06-26] MEDS: SOD CHLORIDE 0.9% 250 ML IV* (19:18)
[2018-06-26] MEDS: SENNA TAB PO (21:35)
[2018-06-26] MEDS: ATORVASTATIN 20 MG TAB PO (21:36)
[2018-06-26] MEDS: CELECOXIB 100 MG CAP PO (22:06)
[2018-06-27] MEDS: ACETAMINOPHEN 325 MG TAB PO (02:56)
[2018-06-27 07:23] LABS: ADD MAN DIFF? NO
[2018-06-27 07:34] LABS: ABNORMAL IP MESSAGE 1; BASOPHILS % 0.2 % (0.0-2.0); EOSINOPHILS % 0.2 % (0.0-7.0); HEMATOCRIT 38.3 % (37.0-47.0); HEMOGLOBIN 10.7 g/dl (12.0-16.0); LYMPHOCYTES # 0.4 10^3/ul (0.8-2.9); MEAN CORPUSCULAR HEMOGLOBIN 26.7 pg (29.0-33.0); MEAN CORPUSCULAR HGB CONC 27.9 g/dl (32.0-37.0); MEAN CORPUSCULAR VOLUME 95.5 fl (82.0-101.0); MEAN PLATELET VOLUME 10.6 fl (7.4-10.4); MONOCYTE # 0.6 10^3/ul (0.3-0.9); MONOCYTES % 10.4 % (0.0-11.0); NEUTROPHIL # 4.7 10^3/ul (1.6-7.5); NEUTROPHILS % 81.8 % (39.0-77.0); PLATELET COUNT 87 10^3/UL (140-415); RED BLOOD COUNT 4.01 10^6/ul (4.20-5.40); RED CELL DISTRIBUTION WIDTH 18.2 % (11.5-14.5)
[2018-06-27 07:34] LABS: WHITE BLOOD COUNT 5.7 10^3/ul (4.8-10.8)
[2018-06-27 07:42] LABS: POSITIVE DIFF @See below
[2018-06-27 07:53] LABS: ALANINE AMINOTRANSFERASE 11 IU/L (13-69); ALBUMIN 3.7 g/dl (3.3-4.9); ALBUMIN/GLOBULIN RATIO 1.15; ALKALINE PHOSPHATASE 112 IU/L (42-121); ANION GAP 14 (5-13); ASPARTATE AMINO TRANSFERASE 20 IU/L (15-46); BLOOD UREA NITROGEN 51 mg/dl (7-20); CALCIUM 9.6 mg/dl (8.4-10.2); CARBON DIOXIDE 26 mmol/L (21-31); CHLORIDE 95 mmol/L (97-110); CREATININE 4.15 mg/dl (0.44-1.00); Estimated GFR 11 mL/min (>60); GLUCOSE 130 mg/dl (70-220); POTASSIUM 5.1 mmol/L (3.5-5.1); SODIUM 135 mmol/L (135-144); TOTAL PROTEIN 6.9 g/dl (6.1-8.1)
[2018-06-27] MEDS: CALCIUM ACETATE 667 MG CAP PO ×3 (08:01→17:46)
[2018-06-27] MEDS: clonAZEPAM 0.5 MG TAB PO ×2 (08:01→20:56)
[2018-06-27] MEDS: DOCUSATE SODIUM 100 MG CAP PO ×2 (08:01→20:54)
[2018-06-27] MEDS: MUPIROCIN 2% 22 GM OINT TOP (08:01)
[2018-06-27] MEDS: CELECOXIB 100 MG CAP PO (08:04)
[2018-06-27] MEDS: APIXABAN 5 MG TABLET PO ×2 (08:04→20:56)
[2018-06-27] MEDS: METOPROLOL 50 MG TAB PO ×2 (08:04→20:56)
[2018-06-27] MEDS: LOSARTAN 50 MG TAB PO (08:05)
[2018-06-27] MEDS: traMADol 50 MG TAB PO ×2 (12:27→19:31)
[2018-06-27] MEDS: hydrALAzine 20 MG INJ IV (15:53)
[2018-06-27] MEDS: ATORVASTATIN 20 MG TAB PO (20:56)
[2018-06-27] MEDS: SENNA TAB PO (20:56)
[2018-06-27] MEDS: HEPARIN 1000 UNITS/ML 10 ML INJ CATHETER (21:41)
[2018-06-28] MEDS: hydrALAzine 20 MG INJ IV ×3 (02:51→14:05)
[2018-06-28] MEDS: MUPIROCIN 2% 22 GM OINT TOP (08:09)
[2018-06-28] MEDS: CALCIUM ACETATE 667 MG CAP PO ×3 (08:09→17:40)
[2018-06-28] MEDS: clonAZEPAM 0.5 MG TAB PO ×2 (08:09→20:46)
[2018-06-28] MEDS: LOSARTAN 50 MG TAB PO (08:10)
[2018-06-28] MEDS: METOPROLOL 50 MG TAB PO ×2 (08:10→20:46)
[2018-06-28] MEDS: CELECOXIB 100 MG CAP PO (08:10)
[2018-06-28] MEDS: APIXABAN 5 MG TABLET PO ×2 (08:10→20:45)
[2018-06-28] MEDS: DOCUSATE SODIUM 100 MG CAP PO ×2 (08:11→20:46)
[2018-06-28] MEDS: traMADol 50 MG TAB PO (08:11)
[2018-06-28 08:57] LABS: ADD MAN DIFF? NO
[2018-06-28] MEDS: morphine (ER) 15 MG TAB PO ×2 (09:03→20:45)
[2018-06-28 09:08] LABS: BASOPHILS % 0.3 % (0.0-2.0); EOSINOPHILS # 0.1 10^3/ul (0.0-0.5); EOSINOPHILS % 1.4 % (0.0-7.0); HEMATOCRIT 35.6 % (37.0-47.0); HEMOGLOBIN 10.5 g/dl (12.0-16.0); LYMPHOCYTES # 0.6 10^3/ul (0.8-2.9); LYMPHOCYTES % 8.4 % (15.0-51.0); MEAN CORPUSCULAR HEMOGLOBIN 26.8 pg (29.0-33.0); MEAN CORPUSCULAR HGB CONC 29.5 g/dl (32.0-37.0); MEAN CORPUSCULAR VOLUME 90.8 fl (82.0-101.0); MONOCYTE # 0.5 10^3/ul (0.3-0.9); NEUTROPHILS % 82.5 % (39.0-77.0); PLATELET COUNT 123 10^3/UL (140-415); RED BLOOD COUNT 3.92 10^6/ul (4.20-5.40); RED CELL DISTRIBUTION WIDTH 18.1 % (11.5-14.5)
[2018-06-28 09:08] LABS: WHITE BLOOD COUNT 7.3 10^3/ul (4.8-10.8)
[2018-06-28 09:50] LABS: ALANINE AMINOTRANSFERASE 20 IU/L (13-69); ALBUMIN 3.5 g/dl (3.3-4.9); ALBUMIN/GLOBULIN RATIO 1.02; ALKALINE PHOSPHATASE 98 IU/L (42-121); ANION GAP 12 (5-13); ASPARTATE AMINO TRANSFERASE 20 IU/L (15-46); BLOOD UREA NITROGEN 39 mg/dl (7-20); CALCIUM 9.3 mg/dl (8.4-10.2); CARBON DIOXIDE 25 mmol/L (21-31); CHLORIDE 95 mmol/L (97-110); CREATININE 3.21 mg/dl (0.44-1.00); Estimated GFR 14 mL/min (>60); GLUCOSE 94 mg/dl (70-220); POTASSIUM 4.7 mmol/L (3.5-5.1); SODIUM 132 mmol/L (135-144); TOTAL PROTEIN 6.9 g/dl (6.1-8.1)
[2018-06-28] MEDS: SENNA TAB PO (20:45)
[2018-06-28] MEDS: ATORVASTATIN 20 MG TAB PO (20:45)
[2018-06-29] MEDS: clonAZEPAM 0.5 MG TAB PO ×2 (08:48→20:49)
[2018-06-29] MEDS: METOPROLOL 50 MG TAB PO ×2 (08:51→20:50)
[2018-06-29] MEDS: morphine (ER) 15 MG TAB PO ×2 (08:52→20:51)
[2018-06-29] MEDS: APIXABAN 5 MG TABLET PO ×2 (08:52→20:50)
[2018-06-29] MEDS: LOSARTAN 50 MG TAB PO (08:52)
[2018-06-29] MEDS: CALCIUM ACETATE 667 MG CAP PO ×3 (08:53→17:36)
[2018-06-29] MEDS: DOCUSATE SODIUM 100 MG CAP PO ×2 (08:53→20:49)
[2018-06-29] MEDS: MUPIROCIN 2% 22 GM OINT TOP (08:53)
[2018-06-29] MEDS: hydrALAzine 20 MG INJ IV (13:59)
[2018-06-29] MEDS: ATORVASTATIN 20 MG TAB PO (20:49)
[2018-06-29] MEDS: SENNA TAB PO (20:49)
[2018-06-29] MEDS: HEPARIN 1000 UNITS/ML 10 ML INJ CATHETER (20:55)
[2018-06-30] MEDS: MUPIROCIN 2% 22 GM OINT TOP (08:21)
[2018-06-30] MEDS: APIXABAN 5 MG TABLET PO ×2 (08:22→21:37)
[2018-06-30] MEDS: morphine (ER) 15 MG TAB PO ×2 (08:22→21:39)
[2018-06-30] MEDS: clonAZEPAM 0.5 MG TAB PO ×3 (08:22→21:37)
[2018-06-30] MEDS: DOCUSATE SODIUM 100 MG CAP PO ×2 (08:22→21:37)
[2018-06-30] MEDS: CALCIUM ACETATE 667 MG CAP PO ×3 (08:23→17:44)
[2018-06-30] MEDS: LOSARTAN 50 MG TAB PO (08:23)
[2018-06-30] MEDS: METOPROLOL 50 MG TAB PO ×2 (08:23→21:38)
[2018-06-30] MEDS: hydrALAzine 20 MG INJ IV (12:31)
[2018-06-30] MEDS: BISACODYL 10 MG SUPP PR (20:29)
[2018-06-30] MEDS: SENNA TAB PO (21:00)
[2018-06-30] MEDS: ATORVASTATIN 20 MG TAB PO (21:37)
[2018-07-01] MEDS: hydrALAzine 20 MG INJ IV ×3 (01:35→15:17)
[2018-07-01] MEDS: traMADol 50 MG TAB PO (06:34)
[2018-07-01] MEDS: DOCUSATE SODIUM 100 MG CAP PO ×2 (09:02→21:09)
[2018-07-01] MEDS: clonAZEPAM 0.5 MG TAB PO ×2 (09:02→21:10)
[2018-07-01] MEDS: morphine (ER) 15 MG TAB PO (09:02)
[2018-07-01] MEDS: CALCIUM ACETATE 667 MG CAP PO ×3 (09:03→17:25)
[2018-07-01] MEDS: METOPROLOL 50 MG TAB PO ×2 (09:03→21:11)
[2018-07-01] MEDS: APIXABAN 5 MG TABLET PO ×2 (09:03→21:11)
[2018-07-01] MEDS: MUPIROCIN 2% 22 GM OINT TOP (09:04)
[2018-07-01] MEDS: LOSARTAN 50 MG TAB PO (09:04)
[2018-07-01] MEDS: ACETAMINOPHEN 325 MG TAB PO (13:04)
[2018-07-01] MEDS ORDERED: PENDING SANTYL ORDER FOR WOUND CARE XX (17:00)
[2018-07-01] MEDS: oxyCODONE (CR) 10 MG TAB [oxyCONTIN] PO ×2 (21:00→21:10)
[2018-07-01] MEDS: ATORVASTATIN 20 MG TAB PO (21:09)
[2018-07-01] MEDS: SENNA TAB PO (21:10)
[2018-07-02] MEDS: QUETIAPINE 25 MG TAB PO ×3 (01:34→21:13)
[2018-07-02] MEDS: hydrALAzine 20 MG INJ IV ×3 (01:35→23:35)
[2018-07-02] MEDS: DOCUSATE SODIUM 100 MG CAP PO ×2 (09:37→21:14)
[2018-07-02] MEDS: CALCIUM ACETATE 667 MG CAP PO ×3 (09:37→17:59)
[2018-07-02] MEDS: APIXABAN 5 MG TABLET PO ×2 (09:37→21:14)
[2018-07-02] MEDS: oxyCODONE (CR) 10 MG TAB [oxyCONTIN] PO (09:39)
[2018-07-02] MEDS: MUPIROCIN 2% 22 GM OINT TOP (09:41)
[2018-07-02] MEDS: LOSARTAN 50 MG TAB PO (09:41)
[2018-07-02] MEDS: METOPROLOL 50 MG TAB PO ×2 (09:42→21:20)
[2018-07-02] MEDS: clonAZEPAM 0.5 MG TAB PO ×2 (09:42→21:14)
[2018-07-02] MEDS: HEPARIN 1000 UNITS/ML 10 ML INJ CATHETER (18:33)
[2018-07-02] MEDS ORDERED: oxyCODONE (CR) 10 MG TAB [oxyCONTIN] PO (21:00)
[2018-07-02] MEDS: ATORVASTATIN 20 MG TAB PO (21:14)
[2018-07-02] MEDS: SENNA TAB PO (21:14)
[2018-07-03 06:09] LABS: ADD MAN DIFF? NO
[2018-07-03 06:12] LABS: WHITE BLOOD COUNT 4.6 10^3/ul (4.8-10.8)
[2018-07-03 06:12] LABS: ABNORMAL IP MESSAGE 1; BASOPHILS % 0.9 % (0.0-2.0); EOSINOPHILS % 0.7 % (0.0-7.0); HEMATOCRIT 33.3 % (37.0-47.0); HEMOGLOBIN 9.8 g/dl (12.0-16.0); LYMPHOCYTES # 0.4 10^3/ul (0.8-2.9); LYMPHOCYTES % 7.6 % (15.0-51.0); MEAN CORPUSCULAR HEMOGLOBIN 26.3 pg (29.0-33.0); MEAN CORPUSCULAR HGB CONC 29.4 g/dl (32.0-37.0); MEAN CORPUSCULAR VOLUME 89.5 fl (82.0-101.0); MEAN PLATELET VOLUME 9.7 fl (7.4-10.4); MONOCYTE # 0.6 10^3/ul (0.3-0.9); MONOCYTES % 12.4 % (0.0-11.0); NEUTROPHIL # 3.6 10^3/ul (1.6-7.5); NEUTROPHILS % 78.2 % (39.0-77.0); PLATELET COUNT 96 10^3/UL (140-415); RED BLOOD COUNT 3.72 10^6/ul (4.20-5.40); RED CELL DISTRIBUTION WIDTH 17.3 % (11.5-14.5)
[2018-07-03 06:39] LABS: ALANINE AMINOTRANSFERASE 16 IU/L (13-69); ALBUMIN 3.3 g/dl (3.3-4.9); ALBUMIN/GLOBULIN RATIO 1.13; ALKALINE PHOSPHATASE 77 IU/L (42-121); ANION GAP 13 (5-13); ASPARTATE AMINO TRANSFERASE 18 IU/L (15-46); BLOOD UREA NITROGEN 39 mg/dl (7-20); CARBON DIOXIDE 29 mmol/L (21-31); CHLORIDE 93 mmol/L (97-110); CREATININE 3.37 mg/dl (0.44-1.00); Estimated GFR 14 mL/min (>60); GLUCOSE 89 mg/dl (70-220); SODIUM 135 mmol/L (135-144); TOTAL PROTEIN 6.2 g/dl (6.1-8.1)
[2018-07-03 07:23] LABS: POSITIVE DIFF @See below
[2018-07-03] MEDS: APIXABAN 5 MG TABLET PO ×2 (08:49→20:18)
[2018-07-03] MEDS: CALCIUM ACETATE 667 MG CAP PO ×3 (08:49→17:44)
[2018-07-03] MEDS: LOSARTAN 50 MG TAB PO (08:50)
[2018-07-03] MEDS: DOCUSATE SODIUM 100 MG CAP PO ×2 (08:50→20:19)
[2018-07-03] MEDS: clonAZEPAM 0.5 MG TAB PO ×2 (08:50→20:17)
[2018-07-03] MEDS: METOPROLOL 50 MG TAB PO ×2 (08:50→20:22)
[2018-07-03] MEDS: MUPIROCIN 2% 22 GM OINT TOP (08:51)
[2018-07-03] MEDS: BISACODYL 10 MG SUPP PR (10:43)
[2018-07-03] MEDS: LACTULOSE 30ML CUP PO (10:44)
[2018-07-03] MEDS: ONDANSETRON 4 MG INJ IV (12:44)
[2018-07-03] MEDS: hydrALAzine 20 MG INJ IV (12:58)
[2018-07-03] MEDS: traMADol 50 MG TAB PO (15:37)
[2018-07-03] MEDS: PANTOPRAZOLE (EC) 40 MG TAB PO (17:16)
[2018-07-03] MEDS: ATORVASTATIN 20 MG TAB PO (20:18)
[2018-07-03] MEDS: SENNA TAB PO (20:18)
[2018-07-04] MEDS: traMADol 50 MG TAB PO ×3 (04:59→17:25)
[2018-07-04] MEDS: PANTOPRAZOLE (EC) 40 MG TAB PO (05:53)
[2018-07-04] MEDS: clonAZEPAM 0.5 MG TAB PO ×2 (08:09→20:44)
[2018-07-04] MEDS: DOCUSATE SODIUM 100 MG CAP PO ×2 (08:09→20:45)
[2018-07-04] MEDS: ACETAMINOPHEN 325 MG TAB PO (08:09)
[2018-07-04] MEDS: APIXABAN 5 MG TABLET PO ×2 (08:09→20:47)
[2018-07-04] MEDS: METOPROLOL 50 MG TAB PO ×2 (08:10→20:46)
[2018-07-04] MEDS: CALCIUM ACETATE 667 MG CAP PO ×3 (08:10→17:25)
[2018-07-04] MEDS: LOSARTAN 50 MG TAB PO (08:11)
[2018-07-04] MEDS: MUPIROCIN 2% 22 GM OINT TOP (08:11)
[2018-07-04] MEDS: HEPARIN 1000 UNITS/ML 10 ML INJ CATHETER (17:08)
[2018-07-04] MEDS: EPOETIN 10000 UNITS/1 ML INJ (ESRD) SC (17:27)
[2018-07-04] MEDS: SENNA TAB PO (20:45)
[2018-07-04] MEDS: ATORVASTATIN 20 MG TAB PO (21:00)
[2018-07-05] MEDS: QUETIAPINE 25 MG TAB PO (00:18)
[2018-07-05] MEDS: traMADol 50 MG TAB PO ×3 (00:21→13:51)
[2018-07-05] MEDS: PANTOPRAZOLE (EC) 40 MG TAB PO (06:23)
[2018-07-05] MEDS: clonAZEPAM 0.5 MG TAB PO ×2 (08:23→22:26)
[2018-07-05] MEDS: CALCIUM ACETATE 667 MG CAP PO ×3 (08:23→17:35)
[2018-07-05] MEDS: METOPROLOL 50 MG TAB PO ×2 (08:23→22:28)
[2018-07-05] MEDS: DOCUSATE SODIUM 100 MG CAP PO ×2 (08:24→22:26)
[2018-07-05] MEDS: MUPIROCIN 2% 22 GM OINT TOP (08:24)
[2018-07-05] MEDS: LOSARTAN 50 MG TAB PO (08:24)
[2018-07-05] MEDS: APIXABAN 5 MG TABLET PO ×2 (08:24→22:28)
[2018-07-05] MEDS: hydrALAzine 20 MG INJ IV ×2 (09:21→18:54)
[2018-07-05] MEDS: ONDANSETRON 4 MG INJ IV (13:51)
[2018-07-05] MEDS: ACETAMINOPHEN 325 MG TAB PO (20:16)
[2018-07-05] MEDS: HEPARIN 1000 UNITS/ML 10 ML INJ CATHETER (20:18)
[2018-07-05] MEDS: ATORVASTATIN 20 MG TAB PO (22:27)
[2018-07-05] MEDS: SENNA TAB PO (22:27)
[2018-07-06] MEDS: traMADol 50 MG TAB PO ×4 (05:50→21:17)
[2018-07-06] MEDS: PANTOPRAZOLE (EC) 40 MG TAB PO (05:57)
[2018-07-06] MEDS: CALCIUM ACETATE 667 MG CAP PO ×3 (08:10→17:01)
[2018-07-06] MEDS: MUPIROCIN 2% 22 GM OINT TOP (08:57)
[2018-07-06] MEDS: APIXABAN 5 MG TABLET PO ×2 (08:57→21:14)
[2018-07-06] MEDS: METOPROLOL 50 MG TAB PO ×2 (08:58→21:14)
[2018-07-06] MEDS: LOSARTAN 50 MG TAB PO (08:58)
[2018-07-06] MEDS: DOCUSATE SODIUM 100 MG CAP PO ×2 (08:58→21:11)
[2018-07-06] MEDS: CELECOXIB 100 MG CAP PO (08:58)
[2018-07-06] MEDS: hydrALAzine 20 MG INJ IV ×2 (12:56→16:29)
[2018-07-06] MEDS: EPOETIN 10000 UNITS/1 ML INJ (ESRD) SC (16:17)
[2018-07-06] MEDS: ATORVASTATIN 20 MG TAB PO (21:14)
[2018-07-06] MEDS: SENNA TAB PO (21:14)
[2018-07-06] MEDS: clonAZEPAM 0.5 MG TAB PO (21:21)
[2018-07-06] MEDS: HEPARIN 1000 UNITS/ML 10 ML INJ CATHETER (22:55)
[2018-07-07] MEDS: hydrALAzine 20 MG INJ IV ×2 (02:04→08:06)
[2018-07-07] MEDS: traMADol 50 MG TAB PO ×2 (03:28→11:09)
[2018-07-07] MEDS: ACETAMINOPHEN 325 MG TAB PO (06:50)
[2018-07-07] MEDS: PANTOPRAZOLE (EC) 40 MG TAB PO (06:50)
[2018-07-07 07:18] LABS: HEMATOCRIT 35.7 % (37.0-47.0)
[2018-07-07 07:18] LABS: HEMOGLOBIN 10.6 g/dl (12.0-16.0)
[2018-07-07] MEDS: CALCIUM ACETATE 667 MG CAP PO ×2 (07:35→12:00)
[2018-07-07] MEDS: LOSARTAN 50 MG TAB PO (08:08)
[2018-07-07] MEDS: METOPROLOL 50 MG TAB PO (08:08)
[2018-07-07] MEDS: DOCUSATE SODIUM 100 MG CAP PO (08:11)
[2018-07-07] MEDS: MUPIROCIN 2% 22 GM OINT TOP (08:12)
[2018-07-07] MEDS: clonAZEPAM 0.5 MG TAB PO (08:12)
[2018-07-07 09:02] LABS: ALANINE AMINOTRANSFERASE 18 IU/L (13-69); ALBUMIN 3.5 g/dl (3.3-4.9); ALBUMIN/GLOBULIN RATIO 1.12; ALKALINE PHOSPHATASE 95 IU/L (42-121); ANION GAP 14 (5-13); ASPARTATE AMINO TRANSFERASE 20 IU/L (15-46); BLOOD UREA NITROGEN 37 mg/dl (7-20); CALCIUM 9.7 mg/dl (8.4-10.2); CARBON DIOXIDE 27 mmol/L (21-31); CHLORIDE 97 mmol/L (97-110); CREATININE 3.25 mg/dl (0.44-1.00); Estimated GFR 14 mL/min (>60); GLUCOSE 71 mg/dl (70-220); POTASSIUM 4.5 mmol/L (3.5-5.1); SODIUM 138 mmol/L (135-144); TOTAL PROTEIN 6.6 g/dl (6.1-8.1)
[2018-07-07] MEDS: AMLODIPINE 5 MG TAB PO (09:26)
[2018-07-07] MEDS ORDERED: clonAZEPAM 0.5 MG TAB PO (09:30)
[2018-07-07] MEDS: DEXTROSE 50% 50 ML SYRINGE IV (10:19)
[2018-07-07] MEDS: HEPARIN 1000 UNITS/ML 10 ML INJ CATHETER (11:46)
[2018-07-07] MEDS: APIXABAN 5 MG TABLET PO (13:11)
== END 2018-07-07 14:12 | disposition short-term general hospital (02) | DRG 945 ==
LOC: VRC 20:45
PROC: F07Z5ZZ Bed Mobility Treatment (ICD-10-PCS; principal; 2018-06-15)
PROC: F07Z8ZZ Transfer Training Treatment (ICD-10-PCS; 2018-06-15)
PROC: F07Z9ZZ Gait Training/Functional Ambulation Treatment (ICD-10-PCS; 2018-06-15)
PROC: F08Z2ZZ Grooming/Personal Hygiene Treatment (ICD-10-PCS; 2018-06-15)
PROC: F08Z1ZZ Dressing Techniques Treatment (ICD-10-PCS; 2018-06-15)
PROC: F08Z0ZZ Bathing/Showering Techniques Treatment (ICD-10-PCS; 2018-06-15)
PROC: 5A1D70Z Performance of Urinary Filtration, Intermittent, Less than 6 Hours Per Day (ICD-10-PCS; 2018-06-16)
DX: R53.81 Other malaise (principal); N18.6 End stage renal disease; I12.0 Hypertensive chronic kidney disease with stage 5 chronic kidney disease or end stage renal disease; F11.20 Opioid dependence, uncomplicated; N39.0 Urinary tract infection, site not specified; Z74.09 Other reduced mobility; D50.9 Iron deficiency anemia, unspecified; D63.1 Anemia in chronic kidney disease; D69.6 Thrombocytopenia, unspecified; E11.22 Type 2 diabetes mellitus with diabetic chronic kidney disease; E21.3 Hyperparathyroidism, unspecified; E78.5 Hyperlipidemia, unspecified; F06.8 Other specified mental disorders due to known physiological condition; F31.9 Bipolar disorder, unspecified; G89.4 Chronic pain syndrome; M19.90 Unspecified osteoarthritis, unspecified site; R60.0 Localized edema; R41.0 Disorientation, unspecified; T40.2X5A Adverse effect of other opioids, initial encounter; Z99.2 Dependence on renal dialysis
CPT/HCPCS: 71045; 76642; 80053; 81001; 82962; 85014; 85018; 85025; 87081; 87086; 87340; 90935; 93971; 97110; 97112; 97116; 97150; 97163; 97167; 97530; 97535; 97542

== ENCOUNTER 2018-07-07 14:25 | Inpatient (IN) | payer MEDICARE, OTHER ==
[2018-07-07] MEDS ORDERED: NACL 0.9% 3 ML SYG IV ×2 (15:00→16:00)
[2018-07-07] MEDS ORDERED: hydrALAzine 20 MG INJ IV (15:30)
[2018-07-07] MEDS ORDERED: LACTULOSE 30ML CUP PO (15:30)
[2018-07-07] MEDS ORDERED: SOD CHLORIDE 0.9% 1,000 ML IV (15:30)
[2018-07-07] MEDS ORDERED: clonAZEPAM 0.5 MG TAB PO (15:30)
[2018-07-07] MEDS ORDERED: ACETAMINOPHEN 325 MG TAB PO (15:30)
[2018-07-07] MEDS ORDERED: BISACODYL (EC) 5 MG TAB PO (15:30)
[2018-07-07] MEDS ORDERED: QUETIAPINE 25 MG TAB PO (15:30)
[2018-07-07] MEDS ORDERED: HEPARIN 1000 UNITS/ML 10 ML INJ CATHETER ×2 (15:30→16:00)
[2018-07-07 15:50] LABS: LACTIC ACID 1.1 mmol/L (0.5-2.0)
[2018-07-07] MEDS ORDERED: DOCUSATE SODIUM 100 MG CAP PO (16:00)
[2018-07-07] MEDS ORDERED: SENNA TAB PO (16:00)
[2018-07-07] MEDS ORDERED: ONDANSETRON 4 MG INJ IV (16:00)
[2018-07-07] MEDS: traMADol 50 MG TAB PO ×2 (17:06→20:14)
[2018-07-07] MEDS: CALCIUM ACETATE 667 MG CAP PO (17:07)
[2018-07-07] MEDS ORDERED: CALCIUM ACETATE 667 MG CAP PO (18:00)
[2018-07-07] MEDS: hydrALAzine 20 MG INJ IV ×2 (18:24→22:32)
[2018-07-07] MEDS: DOCUSATE SODIUM 100 MG CAP PO (20:13)
[2018-07-07] MEDS: AMLODIPINE 5 MG TAB PO (20:13)
[2018-07-07] MEDS: ATORVASTATIN 20 MG TAB PO (20:13)
[2018-07-07] MEDS: METOPROLOL 50 MG TAB PO (20:14)
[2018-07-07] MEDS: QUETIAPINE 25 MG TAB PO (20:14)
[2018-07-07] MEDS: APIXABAN 5 MG TABLET PO (20:15)
[2018-07-07] MEDS ORDERED: METOPROLOL 50 MG TAB PO (21:00)
[2018-07-07] MEDS ORDERED: APIXABAN 5 MG TABLET PO (21:00)
[2018-07-07] MEDS ORDERED: AMLODIPINE 5 MG TAB PO (21:00)
[2018-07-07] MEDS: clonAZEPAM 0.5 MG TAB PO (22:32)
[2018-07-08] MEDS: traMADol 50 MG TAB PO ×6 (01:35→21:01)
[2018-07-08] MEDS ORDERED: PANTOPRAZOLE (EC) 40 MG TAB PO ×2 (04:48→06:00)
[2018-07-08] MEDS: PANTOPRAZOLE (EC) 40 MG TAB PO (05:02)
[2018-07-08 05:52] LABS: ADD MAN DIFF? NO
[2018-07-08 06:07] LABS: WHITE BLOOD COUNT 5.7 10^3/ul (4.8-10.8)
[2018-07-08 06:07] LABS: ABNORMAL IP MESSAGE 1; BASOPHIL # 0.1 10^3/ul (0.0-0.1); BASOPHILS % 0.9 % (0.0-2.0); EOSINOPHILS # 0.2 10^3/ul (0.0-0.5); EOSINOPHILS % 3.5 % (0.0-7.0); HEMATOCRIT 36.2 % (37.0-47.0); HEMOGLOBIN 10.9 g/dl (12.0-16.0); LYMPHOCYTES # 0.4 10^3/ul (0.8-2.9); LYMPHOCYTES % 7.3 % (15.0-51.0); MEAN CORPUSCULAR HEMOGLOBIN 26.1 pg (29.0-33.0); MEAN CORPUSCULAR HGB CONC 30.1 g/dl (32.0-37.0); MEAN CORPUSCULAR VOLUME 86.8 fl (82.0-101.0); MEAN PLATELET VOLUME 10.1 fl (7.4-10.4); MONOCYTE # 0.7 10^3/ul (0.3-0.9); MONOCYTES % 12.2 % (0.0-11.0); NEUTROPHIL # 4.3 10^3/ul (1.6-7.5); NEUTROPHILS % 75.8 % (39.0-77.0); PLATELET COUNT 101 10^3/UL (140-415); RED BLOOD COUNT 4.17 10^6/ul (4.20-5.40); RED CELL DISTRIBUTION WIDTH 17.1 % (11.5-14.5)
[2018-07-08 06:24] LABS: POSITIVE DIFF @See below
[2018-07-08 06:40] LABS: ANION GAP 17 (5-13); BLOOD UREA NITROGEN 26 mg/dl (7-20); CALCIUM 9.7 mg/dl (8.4-10.2); CARBON DIOXIDE 26 mmol/L (21-31); CHLORIDE 96 mmol/L (97-110); CREATININE 2.62 mg/dl (0.44-1.00); Estimated GFR 18 mL/min (>60); GLUCOSE 79 mg/dl (70-220); POTASSIUM 3.8 mmol/L (3.5-5.1); SODIUM 139 mmol/L (135-144)
[2018-07-08 07:03] LABS: HEMOGLOBIN A1C 4.3 % (0-5.9)
[2018-07-08] MEDS: CALCIUM ACETATE 667 MG CAP PO ×3 (08:20→17:58)
[2018-07-08] MEDS: SENNA TAB PO (08:21)
[2018-07-08] MEDS: DOCUSATE SODIUM 100 MG CAP PO ×2 (08:21→21:01)
[2018-07-08] MEDS: APIXABAN 5 MG TABLET PO ×2 (08:22→21:01)
[2018-07-08] MEDS: METOPROLOL 50 MG TAB PO ×2 (08:22→21:00)
[2018-07-08] MEDS: AMLODIPINE 5 MG TAB PO ×2 (08:23→11:03)
[2018-07-08] MEDS: MUPIROCIN 2% 22 GM OINT TOP (08:23)
[2018-07-08] MEDS: clonAZEPAM 0.5 MG TAB PO (08:30)
[2018-07-08] MEDS: LOSARTAN 50 MG TAB PO (08:35)
[2018-07-08] MEDS ORDERED: LOSARTAN 50 MG TAB PO (09:00)
[2018-07-08] MEDS: hydrALAzine 20 MG INJ IV (10:13)
[2018-07-08] MEDS: ONDANSETRON 4 MG INJ IV (10:17)
[2018-07-08] MEDS ORDERED: CALCIUM CARBONATE 500 MG CHEW TAB PO (16:00)
[2018-07-08] MEDS: CALCIUM CARBONATE 500 MG CHEW TAB PO (16:09)
[2018-07-08] MEDS ORDERED: EPOETIN 10000 UNITS/1 ML INJ (ESRD) SC (17:00)
[2018-07-08] MEDS: HEPARIN 1000 UNITS/ML 10 ML INJ CATHETER (19:11)
[2018-07-08] MEDS: QUETIAPINE 25 MG TAB PO (21:00)
[2018-07-08] MEDS: ATORVASTATIN 20 MG TAB PO (21:00)
[2018-07-09] MEDS: traMADol 50 MG TAB PO ×6 (01:00→21:40)
[2018-07-09] MEDS: hydrALAzine 20 MG INJ IV ×4 (02:31→18:38)
[2018-07-09] MEDS: PANTOPRAZOLE (EC) 40 MG TAB PO (04:55)
[2018-07-09] MEDS: clonAZEPAM 0.5 MG TAB PO (06:14)
[2018-07-09] MEDS: AMLODIPINE 10 MG TAB NGT (08:42)
[2018-07-09] MEDS: APIXABAN 5 MG TABLET PO ×2 (08:42→21:39)
[2018-07-09] MEDS: CALCIUM ACETATE 667 MG CAP PO ×3 (08:43→17:44)
[2018-07-09] MEDS: METOPROLOL 50 MG TAB PO ×2 (08:43→21:39)
[2018-07-09] MEDS: LOSARTAN 50 MG TAB PO (08:44)
[2018-07-09] MEDS: DOCUSATE SODIUM 100 MG CAP PO ×2 (08:44→21:38)
[2018-07-09] MEDS: SENNA TAB PO (08:44)
[2018-07-09] MEDS: MUPIROCIN 2% 22 GM OINT TOP (08:45)
[2018-07-09] MEDS: ONDANSETRON 4 MG INJ IV (08:53)
[2018-07-09] MEDS: HEPARIN 1000 UNITS/ML 10 ML INJ CATHETER (13:19)
[2018-07-09] MEDS: DIMETHICONE STICK TOP (17:44)
[2018-07-09] MEDS: ATORVASTATIN 20 MG TAB PO (21:38)
[2018-07-09] MEDS: QUETIAPINE 25 MG TAB PO (21:40)
[2018-07-10] MEDS: traMADol 50 MG TAB PO ×7 (01:44→20:48)
[2018-07-10] MEDS: hydrALAzine 20 MG INJ IV ×2 (04:50→11:44)
[2018-07-10] MEDS: PANTOPRAZOLE (EC) 40 MG TAB PO (05:49)
[2018-07-10] MEDS: SENNA TAB PO (09:04)
[2018-07-10] MEDS: CALCIUM ACETATE 667 MG CAP PO ×3 (09:05→18:12)
[2018-07-10] MEDS: AMLODIPINE 10 MG TAB NGT (09:05)
[2018-07-10] MEDS: APIXABAN 5 MG TABLET PO ×2 (09:05→20:49)
[2018-07-10] MEDS: METOPROLOL 50 MG TAB PO ×2 (09:06→20:49)
[2018-07-10] MEDS: LOSARTAN 50 MG TAB PO (09:06)
[2018-07-10] MEDS: DOCUSATE SODIUM 100 MG CAP PO ×2 (09:06→20:47)
[2018-07-10] MEDS: MUPIROCIN 2% 22 GM OINT TOP (09:06)
[2018-07-10] MEDS: BARIUM SULF 2% 450 ML BTL (BERRY SMOOTHIE) PO ×2 (10:30→11:21)
[2018-07-10] MEDS ORDERED: DOXAZOSIN 1 MG TAB PO (10:30)
[2018-07-10] MEDS: DOXAZOSIN 1 MG TAB PO (14:02)
[2018-07-10] MEDS: ATORVASTATIN 20 MG TAB PO (20:47)
[2018-07-10] MEDS: DOXAZOSIN 2 MG TAB PO (20:50)
[2018-07-10] MEDS: QUETIAPINE 25 MG TAB PO (20:50)
[2018-07-10] MEDS: clonAZEPAM 0.5 MG TAB PO (20:58)
[2018-07-10] MEDS: ACETAMINOPHEN 325 MG TAB PO (22:45)
[2018-07-11] MEDS: traMADol 50 MG TAB PO ×4 (01:43→11:59)
[2018-07-11] MEDS: PANTOPRAZOLE (EC) 40 MG TAB PO (05:19)
[2018-07-11] MEDS: hydrALAzine 20 MG INJ IV (06:25)
[2018-07-11] MEDS: CALCIUM ACETATE 667 MG CAP PO ×3 (07:59→16:45)
[2018-07-11] MEDS: LOSARTAN 50 MG TAB PO (07:59)
[2018-07-11] MEDS: AMLODIPINE 10 MG TAB NGT (07:59)
[2018-07-11] MEDS: DOCUSATE SODIUM 100 MG CAP PO ×2 (08:00→20:43)
[2018-07-11] MEDS: SENNA TAB PO (08:00)
[2018-07-11] MEDS: APIXABAN 5 MG TABLET PO ×2 (08:00→20:41)
[2018-07-11] MEDS: METOPROLOL 50 MG TAB PO ×2 (08:00→20:43)
[2018-07-11] MEDS: MUPIROCIN 2% 22 GM OINT TOP (08:01)
[2018-07-11] MEDS: ACETAMINOPHEN 325 MG TAB PO (11:59)
[2018-07-11] MEDS: clonAZEPAM 0.5 MG TAB PO (14:11)
[2018-07-11 16:34] LABS: ANION GAP 11 (5-13); BLOOD UREA NITROGEN 43 mg/dl (7-20); CALCIUM 9.7 mg/dl (8.4-10.2); CARBON DIOXIDE 27 mmol/L (21-31); CHLORIDE 98 mmol/L (97-110); CREATININE 3.78 mg/dl (0.44-1.00); Estimated GFR 12 mL/min (>60); GLUCOSE 61 mg/dl (70-220); POTASSIUM 4.2 mmol/L (3.5-5.1); SODIUM 136 mmol/L (135-144)
[2018-07-11] MEDS: OXYCODONE/ACETAMINOPHEN (5/325) TAB PO (17:33)
[2018-07-11] MEDS: HEPARIN 1000 UNITS/ML 10 ML INJ CATHETER (20:04)
[2018-07-11] MEDS: ATORVASTATIN 20 MG TAB PO (20:40)
[2018-07-11] MEDS: QUETIAPINE 25 MG TAB PO (20:42)
[2018-07-11] MEDS: DOXAZOSIN 2 MG TAB PO (20:42)
[2018-07-12] MEDS: OXYCODONE/ACETAMINOPHEN (5/325) TAB PO ×2 (04:00→09:18)
[2018-07-12] MEDS: clonAZEPAM 0.5 MG TAB PO (06:47)
[2018-07-12] MEDS: PANTOPRAZOLE (EC) 40 MG TAB PO (06:48)
[2018-07-12] MEDS: SENNA TAB PO (08:24)
[2018-07-12] MEDS: DOCUSATE SODIUM 100 MG CAP PO ×2 (08:24→21:00)
[2018-07-12] MEDS: APIXABAN 5 MG TABLET PO ×2 (08:25→21:47)
[2018-07-12] MEDS: CALCIUM ACETATE 667 MG CAP PO ×3 (08:25→17:14)
[2018-07-12] MEDS: METOPROLOL 50 MG TAB PO ×2 (08:25→21:47)
[2018-07-12] MEDS: LOSARTAN 50 MG TAB PO (08:26)
[2018-07-12] MEDS: AMLODIPINE 10 MG TAB NGT (08:26)
[2018-07-12] MEDS: MUPIROCIN 2% 22 GM OINT TOP (08:26)
[2018-07-12] MEDS: traMADol 50 MG TAB PO ×2 (14:10→21:49)
[2018-07-12] MEDS: DOXAZOSIN 2 MG TAB PO (21:47)
[2018-07-12] MEDS: ATORVASTATIN 20 MG TAB PO (21:48)
[2018-07-12] MEDS: QUETIAPINE 25 MG TAB PO (21:48)
[2018-07-13] MEDS: PANTOPRAZOLE (EC) 40 MG TAB PO (06:35)
[2018-07-13] MEDS: CALCIUM ACETATE 667 MG CAP PO ×3 (08:00→17:29)
[2018-07-13] MEDS: APIXABAN 5 MG TABLET PO ×2 (08:31→20:17)
[2018-07-13] MEDS: METOPROLOL 50 MG TAB PO ×2 (09:00→20:17)
[2018-07-13] MEDS: AMLODIPINE 10 MG TAB NGT (09:00)
[2018-07-13] MEDS: MUPIROCIN 2% 22 GM OINT TOP (09:00)
[2018-07-13] MEDS: SENNA TAB PO (09:00)
[2018-07-13] MEDS: LOSARTAN 50 MG TAB PO (09:00)
[2018-07-13] MEDS: DOCUSATE SODIUM 100 MG CAP PO ×2 (09:00→20:16)
[2018-07-13] MEDS: HEPARIN 1000 UNITS/ML 10 ML INJ CATHETER (09:51)
[2018-07-13] MEDS: traMADol 50 MG TAB PO ×3 (09:52→20:17)
[2018-07-13] MEDS: clonAZEPAM 0.5 MG TAB PO (11:54)
[2018-07-13] MEDS: ATORVASTATIN 20 MG TAB PO (20:16)
[2018-07-13] MEDS: QUETIAPINE 25 MG TAB PO (22:17)
[2018-07-13] MEDS: DOXAZOSIN 2 MG TAB PO (22:19)
[2018-07-14] MEDS: hydrALAzine 20 MG INJ IV (01:30)
[2018-07-14] MEDS: traMADol 50 MG TAB PO ×4 (02:56→18:11)
[2018-07-14 05:50] LABS: ADD MAN DIFF? NO
[2018-07-14 05:56] LABS: ABNORMAL IP MESSAGE 1; BASOPHILS % 0.9 % (0.0-2.0); EOSINOPHILS % 1.3 % (0.0-7.0); HEMATOCRIT 36.7 % (37.0-47.0); HEMOGLOBIN 11.4 g/dl (12.0-16.0); LYMPHOCYTES # 0.4 10^3/ul (0.8-2.9); LYMPHOCYTES % 16.5 % (15.0-51.0); MEAN CORPUSCULAR HEMOGLOBIN 26.7 pg (29.0-33.0); MEAN CORPUSCULAR HGB CONC 31.1 g/dl (32.0-37.0); MEAN CORPUSCULAR VOLUME 85.9 fl (82.0-101.0); MONOCYTE # 0.4 10^3/ul (0.3-0.9); MONOCYTES % 18.8 % (0.0-11.0); NEUTROPHIL # 1.4 10^3/ul (1.6-7.5); NEUTROPHILS % 62.1 % (39.0-77.0); PLATELET COUNT 62 10^3/UL (140-415); RED BLOOD COUNT 4.27 10^6/ul (4.20-5.40)
[2018-07-14 05:56] LABS: WHITE BLOOD COUNT 2.2 10^3/ul (4.8-10.8)
[2018-07-14 05:58] LABS: POSITIVE DIFF @See below
[2018-07-14] MEDS: PANTOPRAZOLE (EC) 40 MG TAB PO (06:11)
[2018-07-14 06:20] LABS: ALANINE AMINOTRANSFERASE 14 IU/L (13-69); ALBUMIN 3.9 g/dl (3.3-4.9); ALBUMIN/GLOBULIN RATIO 1.11; ALKALINE PHOSPHATASE 101 IU/L (42-121); ANION GAP 15 (5-13); ASPARTATE AMINO TRANSFERASE 28 IU/L (15-46); BILIRUBIN,TOTAL 0.1 mg/dl (0.2-1.3); BLOOD UREA NITROGEN 29 mg/dl (7-20); CALCIUM 10.2 mg/dl (8.4-10.2); CARBON DIOXIDE 25 mmol/L (21-31); CHLORIDE 97 mmol/L (97-110); CREATININE 2.74 mg/dl (0.44-1.00); Estimated GFR 17 mL/min (>60); GLUCOSE 84 mg/dl (70-220); MAGNESIUM 2.2 mg/dl (1.7-2.5); PHOSPHORUS 4.5 mg/dl (2.5-4.9); POTASSIUM 4.3 mmol/L (3.5-5.1); SODIUM 137 mmol/L (135-144); TOTAL PROTEIN 7.4 g/dl (6.1-8.1)
[2018-07-14] MEDS: CALCIUM ACETATE 667 MG CAP PO ×3 (08:48→18:11)
[2018-07-14] MEDS: DOCUSATE SODIUM 100 MG CAP PO ×2 (08:48→21:28)
[2018-07-14] MEDS: METOPROLOL 50 MG TAB PO ×2 (08:50→21:28)
[2018-07-14] MEDS: AMLODIPINE 10 MG TAB NGT (08:51)
[2018-07-14] MEDS: LOSARTAN 50 MG TAB PO (08:51)
[2018-07-14] MEDS: SENNA TAB PO (08:52)
[2018-07-14] MEDS: APIXABAN 5 MG TABLET PO ×2 (08:52→21:24)
[2018-07-14] MEDS: MUPIROCIN 2% 22 GM OINT TOP (09:06)
[2018-07-14] MEDS: clonAZEPAM 0.5 MG TAB PO ×2 (11:11→21:29)
[2018-07-14] MEDS: CALCIUM CARBONATE 500 MG CHEW TAB PO (21:24)
[2018-07-14] MEDS: ATORVASTATIN 20 MG TAB PO (21:28)
[2018-07-14] MEDS: DOXAZOSIN 2 MG TAB PO (21:28)
[2018-07-14] MEDS: QUETIAPINE 25 MG TAB PO (21:29)
[2018-07-15] MEDS: PANTOPRAZOLE (EC) 40 MG TAB PO (05:46)
[2018-07-15] MEDS: APIXABAN 5 MG TABLET PO ×2 (08:37→20:11)
[2018-07-15] MEDS: SENNA TAB PO (08:37)
[2018-07-15] MEDS: DOCUSATE SODIUM 100 MG CAP PO ×3 (08:37→20:15)
[2018-07-15] MEDS: CALCIUM ACETATE 667 MG CAP PO ×3 (08:37→17:49)
[2018-07-15] MEDS: traMADol 50 MG TAB PO ×2 (08:53→17:57)
[2018-07-15] MEDS: AMLODIPINE 10 MG TAB NGT (09:00)
[2018-07-15] MEDS: ONDANSETRON 4 MG INJ IV (11:13)
[2018-07-15] MEDS: clonAZEPAM 0.5 MG TAB PO ×2 (13:05→21:11)
[2018-07-15] MEDS: HEPARIN 1000 UNITS/ML 10 ML INJ CATHETER (13:40)
[2018-07-15] MEDS: METOPROLOL 50 MG TAB PO ×2 (14:18→20:11)
[2018-07-15] MEDS: LOSARTAN 50 MG TAB PO (14:19)
[2018-07-15] MEDS: DULOXETINE 30 MG CAP DR PO (16:32)
[2018-07-15] MEDS: ATORVASTATIN 20 MG TAB PO (20:11)
[2018-07-15] MEDS: DOXAZOSIN 2 MG TAB PO (20:11)
[2018-07-15] MEDS: QUETIAPINE 25 MG TAB PO (20:12)
[2018-07-16] MEDS: PANTOPRAZOLE (EC) 40 MG TAB PO (06:14)
[2018-07-16 06:46] LABS: ABNORMAL IP MESSAGE 1; HEMATOCRIT 37.3 % (37.0-47.0); HEMOGLOBIN 11.4 g/dl (12.0-16.0); MEAN CORPUSCULAR HEMOGLOBIN 26.5 pg (29.0-33.0); MEAN CORPUSCULAR HGB CONC 30.6 g/dl (32.0-37.0); MEAN CORPUSCULAR VOLUME 86.5 fl (82.0-101.0); MEAN PLATELET VOLUME 10.7 fl (7.4-10.4); PLATELET COUNT 64 10^3/UL (140-415); RED BLOOD COUNT 4.31 10^6/ul (4.20-5.40); RED CELL DISTRIBUTION WIDTH 16.8 % (11.5-14.5)
[2018-07-16 06:46] LABS: WHITE BLOOD COUNT 2.7 10^3/ul (4.8-10.8)
[2018-07-16 07:03] LABS: ADD MAN DIFF? YES; POSITIVE DIFF @See below
[2018-07-16 07:25] LABS: ALANINE AMINOTRANSFERASE 20 IU/L (13-69); ALBUMIN/GLOBULIN RATIO 1.21; ALKALINE PHOSPHATASE 94 IU/L (42-121); ANION GAP 13 (5-13); ASPARTATE AMINO TRANSFERASE 29 IU/L (15-46); BLOOD UREA NITROGEN 27 mg/dl (7-20); CALCIUM 10.4 mg/dl (8.4-10.2); CARBON DIOXIDE 27 mmol/L (21-31); CHLORIDE 96 mmol/L (97-110); CREATININE 2.29 mg/dl (0.44-1.00); Estimated GFR 21 mL/min (>60); GLUCOSE 81 mg/dl (70-220); POTASSIUM 4.2 mmol/L (3.5-5.1); SODIUM 136 mmol/L (135-144); TOTAL PROTEIN 7.3 g/dl (6.1-8.1)
[2018-07-16 07:51] LABS: ANISOCYTOSIS 1+ (0-0); BASOPHILS % (M) 1 % (0-2); EOSINOPHILS % (M) 4 % (0-7); HYPOCHROMASIA 1+ (0-0); LYMPHOCYTES #M 0.4 10^3/ul (0.8-2.9); LYMPHOCYTES % (M) 17 % (15-51); MONOCYTE #M 0.3 10^3/ul (0.3-0.9); MONOCYTES % (M) 12 % (0-11); OVALOCYTES 1+ (0-0); PLATELET ESTIMATE DECREASED; POIKILOCYTOSIS 1+ (0-0); POLYCHROMASIA 1+ (0-0); SEGMENTED NEUTROPHILS (M) % 66 % (39-77); SMUDGE%M 6 % (0-0)
[2018-07-16] MEDS: DOCUSATE SODIUM 100 MG CAP PO ×2 (09:00→20:10)
[2018-07-16] MEDS: SENNA TAB PO (09:00)
[2018-07-16] MEDS: clonAZEPAM 0.5 MG TAB PO ×2 (09:01→21:37)
[2018-07-16] MEDS: DULOXETINE 30 MG CAP DR PO (09:01)
[2018-07-16] MEDS: APIXABAN 5 MG TABLET PO ×2 (09:02→20:12)
[2018-07-16] MEDS: LOSARTAN 50 MG TAB PO (09:04)
[2018-07-16] MEDS: CALCIUM ACETATE 667 MG CAP PO ×3 (09:05→18:45)
[2018-07-16] MEDS: METOPROLOL 50 MG TAB PO ×2 (09:05→20:11)
[2018-07-16] MEDS: AMLODIPINE 10 MG TAB NGT (09:05)
[2018-07-16] MEDS: traMADol 50 MG TAB PO ×2 (09:05→20:16)
[2018-07-16] MEDS: CALCIUM CARBONATE 500 MG CHEW TAB PO (14:30)
[2018-07-16] MEDS: ATORVASTATIN 20 MG TAB PO (20:10)
[2018-07-16] MEDS: QUETIAPINE 25 MG TAB PO (20:11)
[2018-07-16] MEDS: DOXAZOSIN 2 MG TAB PO (20:11)
[2018-07-17] MEDS: hydrALAzine 20 MG INJ IV (03:15)
[2018-07-17] MEDS: PANTOPRAZOLE (EC) 40 MG TAB PO (06:04)
[2018-07-17] MEDS: traMADol 50 MG TAB PO (06:10)
[2018-07-17] MEDS: clonAZEPAM 0.5 MG TAB PO (08:24)
[2018-07-17] MEDS: DOCUSATE SODIUM 100 MG CAP PO ×2 (08:24→21:12)
[2018-07-17] MEDS: CALCIUM ACETATE 667 MG CAP PO (08:24)
[2018-07-17] MEDS: SENNA TAB PO (08:24)
[2018-07-17] MEDS ORDERED: ONDANSETRON 4 MG TAB PO (09:00)
[2018-07-17] MEDS: AMLODIPINE 10 MG TAB NGT (09:00)
[2018-07-17] MEDS: LOSARTAN 50 MG TAB PO (09:00)
[2018-07-17] MEDS: METOPROLOL 50 MG TAB PO ×2 (09:00→21:13)
[2018-07-17] MEDS: APIXABAN 5 MG TABLET PO ×2 (09:00→21:12)
[2018-07-17] MEDS: DULOXETINE 30 MG CAP DR PO (09:00)
[2018-07-17] MEDS ORDERED: DIPHENOXYLATE/ATROPINE TAB PO (09:00)
[2018-07-17] MEDS: HEPARIN 1000 UNITS/ML 10 ML INJ CATHETER (10:30)
[2018-07-17] MEDS: ALBUMIN HUMAN 25% 100 ML IV (11:06)
[2018-07-17] MEDS: ALTEPLASE (CATHFLO) 2 MG INJ CATHETER (11:07)
[2018-07-17] MEDS ORDERED: FAMOTIDINE 20 MG TAB PO (11:40)
[2018-07-17] MEDS: CALCIUM CARBONATE 500 MG CHEW TAB PO ×3 (12:42→21:12)
[2018-07-17] MEDS: FAMOTIDINE 20 MG TAB PO (12:42)
[2018-07-17] MEDS: AMIODARONE 150MG/D5W BOLUS 100 ML IV (14:58)
[2018-07-17] MEDS: ADENOSINE 6 MG INJ IV ×2 (15:01)
[2018-07-17 15:04] LABS: ANION GAP 15 (5-13); BLOOD UREA NITROGEN 25 mg/dl (7-20); CALCIUM 10.5 mg/dl (8.4-10.2); CARBON DIOXIDE 25 mmol/L (21-31); CHLORIDE 95 mmol/L (97-110); CREATININE 2.22 mg/dl (0.44-1.00); Estimated GFR 22 mL/min (>60); GLUCOSE 105 mg/dl (70-220); MAGNESIUM 2.1 mg/dl (1.7-2.5); POTASSIUM 3.8 mmol/L (3.5-5.1); SODIUM 135 mmol/L (135-144)
[2018-07-17 15:15] LABS: TROPONIN-I 0.055 ng/ml (0.000-0.120)
[2018-07-17] MEDS: AMIODARONE 900 MG in DEXTROSE 5% 482 ML IV (16:05)
[2018-07-17] MEDS: DOXAZOSIN 2 MG TAB PO (21:00)
[2018-07-17] MEDS: ATORVASTATIN 20 MG TAB PO (21:12)
[2018-07-17] MEDS: QUETIAPINE 25 MG TAB PO (21:12)
[2018-07-18 06:00] LABS: ADD MAN DIFF? NO
[2018-07-18] MEDS: PANTOPRAZOLE (EC) 40 MG TAB PO (06:02)
[2018-07-18 06:06] LABS: ABNORMAL IP MESSAGE 1; BASOPHILS % 0.7 % (0.0-2.0); EOSINOPHILS # 0.1 10^3/ul (0.0-0.5); EOSINOPHILS % 4.7 % (0.0-7.0); HEMATOCRIT 35.8 % (37.0-47.0); HEMOGLOBIN 10.9 g/dl (12.0-16.0); LYMPHOCYTES # 0.5 10^3/ul (0.8-2.9); LYMPHOCYTES % 18.7 % (15.0-51.0); MEAN CORPUSCULAR HEMOGLOBIN 26.6 pg (29.0-33.0); MEAN CORPUSCULAR HGB CONC 30.4 g/dl (32.0-37.0); MEAN CORPUSCULAR VOLUME 87.3 fl (82.0-101.0); MEAN PLATELET VOLUME 10.8 fl (7.4-10.4); MONOCYTE # 0.6 10^3/ul (0.3-0.9); MONOCYTES % 20.5 % (0.0-11.0); NEUTROPHIL # 1.5 10^3/ul (1.6-7.5); PLATELET COUNT 75 10^3/UL (140-415); RED CELL DISTRIBUTION WIDTH 16.5 % (11.5-14.5)
[2018-07-18 06:06] LABS: WHITE BLOOD COUNT 2.8 10^3/ul (4.8-10.8)
[2018-07-18 06:14] LABS: POSITIVE DIFF @See below
[2018-07-18 07:00] LABS: ALANINE AMINOTRANSFERASE 15 IU/L (13-69); ALBUMIN 4.2 g/dl (3.3-4.9); ALBUMIN/GLOBULIN RATIO 1.27; ALKALINE PHOSPHATASE 87 IU/L (42-121); ANION GAP 14 (5-13); ASPARTATE AMINO TRANSFERASE 26 IU/L (15-46); BILIRUBIN,TOTAL 0.1 mg/dl (0.2-1.3); BLOOD UREA NITROGEN 35 mg/dl (7-20); CALCIUM 10.4 mg/dl (8.4-10.2); CARBON DIOXIDE 28 mmol/L (21-31); CHLORIDE 92 mmol/L (97-110); CREATININE 2.82 mg/dl (0.44-1.00); Estimated GFR 17 mL/min (>60); GLUCOSE 93 mg/dl (70-220); POTASSIUM 3.8 mmol/L (3.5-5.1); SODIUM 134 mmol/L (135-144); TOTAL PROTEIN 7.5 g/dl (6.1-8.1)
[2018-07-18] MEDS: AMIODARONE 900 MG in DEXTROSE 5% 482 ML IV ×2 (07:10→13:51)
[2018-07-18] MEDS: AMLODIPINE 10 MG TAB NGT (08:19)
[2018-07-18] MEDS: APIXABAN 5 MG TABLET PO ×2 (08:19→20:26)
[2018-07-18] MEDS: METOPROLOL 50 MG TAB PO ×2 (08:19→20:26)
[2018-07-18] MEDS: FAMOTIDINE 20 MG TAB PO (08:19)
[2018-07-18] MEDS: DOCUSATE SODIUM 100 MG CAP PO ×3 (08:19→20:26)
[2018-07-18] MEDS: SENNA TAB PO ×2 (08:20→09:00)
[2018-07-18] MEDS: LOSARTAN 50 MG TAB PO (08:20)
[2018-07-18] MEDS: hydrALAzine 20 MG INJ IV ×2 (09:49→15:56)
[2018-07-18] MEDS: traMADol 50 MG TAB PO (10:02)
[2018-07-18] MEDS: clonAZEPAM 0.5 MG TAB PO ×2 (12:42→21:58)
[2018-07-18] MEDS: CALCIUM CARBONATE 500 MG CHEW TAB PO ×2 (12:42→18:13)
[2018-07-18] MEDS: QUETIAPINE 25 MG TAB PO (20:26)
[2018-07-18] MEDS: ATORVASTATIN 20 MG TAB PO (20:26)
[2018-07-18] MEDS: DOXAZOSIN 2 MG TAB PO (21:58)
[2018-07-18 23:11] LABS: HEPARIN INDUCED PLATELET AB NEGATIVE (NEGATIVE)
[2018-07-19 05:21] LABS: ADD MAN DIFF? NO
[2018-07-19 05:27] LABS: ABNORMAL IP MESSAGE 1; BASOPHILS % 0.6 % (0.0-2.0); EOSINOPHILS # 0.2 10^3/ul (0.0-0.5); EOSINOPHILS % 4.7 % (0.0-7.0); HEMOGLOBIN 11.2 g/dl (12.0-16.0); LYMPHOCYTES # 0.5 10^3/ul (0.8-2.9); MEAN CORPUSCULAR HEMOGLOBIN 25.9 pg (29.0-33.0); MEAN CORPUSCULAR HGB CONC 30.3 g/dl (32.0-37.0); MEAN CORPUSCULAR VOLUME 85.6 fl (82.0-101.0); MEAN PLATELET VOLUME 10.4 fl (7.4-10.4); MONOCYTE # 0.8 10^3/ul (0.3-0.9); MONOCYTES % 23.4 % (0.0-11.0); NEUTROPHIL # 1.9 10^3/ul (1.6-7.5); NEUTROPHILS % 57.1 % (39.0-77.0); RED BLOOD COUNT 4.32 10^6/ul (4.20-5.40); RED CELL DISTRIBUTION WIDTH 16.3 % (11.5-14.5)
[2018-07-19 05:27] LABS: WHITE BLOOD COUNT 3.4 10^3/ul (4.8-10.8)
[2018-07-19 05:44] LABS: ALANINE AMINOTRANSFERASE 7 IU/L (13-69); ALBUMIN 3.9 g/dl (3.3-4.9); ALKALINE PHOSPHATASE 84 IU/L (42-121); ASPARTATE AMINO TRANSFERASE 22 IU/L (15-46); BILIRUBIN,TOTAL 0.1 mg/dl (0.2-1.3); TOTAL PROTEIN 7.1 g/dl (6.1-8.1)
[2018-07-19] MEDS: PANTOPRAZOLE (EC) 40 MG TAB PO (05:45)
[2018-07-19 05:46] LABS: POSITIVE DIFF @See below
[2018-07-19 05:47] LABS: PLATELET COUNT 93 10^3/UL (140-415)
[2018-07-19 05:48] LABS: LYMPHOCYTES % 13.6 % (15.0-51.0)
[2018-07-19 05:49] LABS: ANION GAP 16 (5-13); BLOOD UREA NITROGEN 48 mg/dl (7-20); CALCIUM 10.5 mg/dl (8.4-10.2); CARBON DIOXIDE 25 mmol/L (21-31); CHLORIDE 90 mmol/L (97-110); CREATININE 3.43 mg/dl (0.44-1.00); Estimated GFR 13 mL/min (>60); GLUCOSE 98 mg/dl (70-220); POTASSIUM 4.3 mmol/L (3.5-5.1); SODIUM 131 mmol/L (135-144)
[2018-07-19 06:19] LABS: THYROID STIMULATING HORMONE < 0.015 MIU/L (0.465-4.680)
[2018-07-19] MEDS: FAMOTIDINE 20 MG TAB PO (08:07)
[2018-07-19] MEDS: APIXABAN 5 MG TABLET PO ×2 (08:07→20:36)
[2018-07-19] MEDS: SENNA TAB PO (08:07)
[2018-07-19] MEDS: clonAZEPAM 0.5 MG TAB PO ×2 (08:08→20:41)
[2018-07-19] MEDS: DOCUSATE SODIUM 100 MG CAP PO ×3 (08:08→20:43)
[2018-07-19] MEDS: CALCIUM CARBONATE 500 MG CHEW TAB PO ×3 (08:12→18:06)
[2018-07-19] MEDS ORDERED: AMIODARONE 200 MG TAB NGT (09:00)
[2018-07-19] MEDS: traMADol 50 MG TAB PO ×2 (11:04→16:00)
[2018-07-19 11:41] LABS: FREE T4 (FREE THYROXINE) 5.23 ng/dl (0.78-2.44)
[2018-07-19] MEDS: HEPARIN 1000 UNITS/ML 10 ML INJ CATHETER (13:06)
[2018-07-19] MEDS: LOSARTAN 50 MG TAB PO (14:15)
[2018-07-19] MEDS: AMIODARONE 200 MG TAB PO ×2 (14:15→22:04)
[2018-07-19] MEDS: AMLODIPINE 10 MG TAB PO (14:16)
[2018-07-19] MEDS: METOPROLOL 50 MG TAB PO ×2 (14:18→20:36)
[2018-07-19] MEDS: METHIMAZOLE 5 MG TAB PO (20:35)
[2018-07-19] MEDS: DOXAZOSIN 2 MG TAB PO (20:36)
[2018-07-19] MEDS: QUETIAPINE 25 MG TAB PO (20:36)
[2018-07-19] MEDS: ATORVASTATIN 20 MG TAB PO (20:37)
[2018-07-20 06:04] LABS: ADD MAN DIFF? NO
[2018-07-20 06:12] LABS: ABNORMAL IP MESSAGE 1; BASOPHILS % 0.7 % (0.0-2.0); EOSINOPHILS # 0.2 10^3/ul (0.0-0.5); EOSINOPHILS % 6.4 % (0.0-7.0); HEMOGLOBIN 11.2 g/dl (12.0-16.0); LYMPHOCYTES # 0.5 10^3/ul (0.8-2.9); LYMPHOCYTES % 15.6 % (15.0-51.0); MEAN CORPUSCULAR HEMOGLOBIN 26.3 pg (29.0-33.0); MEAN CORPUSCULAR HGB CONC 31.1 g/dl (32.0-37.0); MEAN CORPUSCULAR VOLUME 84.5 fl (82.0-101.0); MEAN PLATELET VOLUME 11.2 fl (7.4-10.4); MONOCYTE # 0.7 10^3/ul (0.3-0.9); MONOCYTES % 25.1 % (0.0-11.0); NEUTROPHIL # 1.5 10^3/ul (1.6-7.5); NEUTROPHILS % 51.9 % (39.0-77.0); PLATELET COUNT 85 10^3/UL (140-415); RED BLOOD COUNT 4.26 10^6/ul (4.20-5.40); RED CELL DISTRIBUTION WIDTH 16.3 % (11.5-14.5)
[2018-07-20] MEDS: PANTOPRAZOLE (EC) 40 MG TAB PO (06:13)
[2018-07-20] MEDS: AMIODARONE 200 MG TAB PO ×2 (06:14→20:54)
[2018-07-20 07:08] LABS: POSITIVE DIFF @See below
[2018-07-20 08:07] LABS: ERYTHROCYTE SEDIMENTATION RATE 16 mm/Hr (0-30)
[2018-07-20] MEDS: DOCUSATE SODIUM 100 MG CAP PO ×2 (08:48→20:20)
[2018-07-20] MEDS: APIXABAN 5 MG TABLET PO ×2 (08:48→20:22)
[2018-07-20] MEDS: METHIMAZOLE 5 MG TAB PO (08:48)
[2018-07-20] MEDS: CALCIUM CARBONATE 500 MG CHEW TAB PO ×3 (08:49→18:47)
[2018-07-20] MEDS: SENNA TAB PO (08:49)
[2018-07-20] MEDS: clonAZEPAM 0.5 MG TAB PO ×2 (08:49→20:54)
[2018-07-20] MEDS: METOPROLOL 50 MG TAB PO ×2 (08:49→20:22)
[2018-07-20] MEDS: FAMOTIDINE 20 MG TAB PO (08:49)
[2018-07-20] MEDS: LOSARTAN 50 MG TAB PO (12:57)
[2018-07-20] MEDS: AMLODIPINE 10 MG TAB PO (14:06)
[2018-07-20] MEDS: QUETIAPINE 25 MG TAB PO (20:20)
[2018-07-20] MEDS: ATORVASTATIN 20 MG TAB PO (20:20)
[2018-07-21] MEDS: PANTOPRAZOLE (EC) 40 MG TAB PO (05:37)
[2018-07-21] MEDS: clonAZEPAM 0.5 MG TAB PO ×2 (05:47→20:35)
[2018-07-21] MEDS: FAMOTIDINE 20 MG TAB PO (08:42)
[2018-07-21] MEDS: APIXABAN 5 MG TABLET PO ×2 (08:42→20:37)
[2018-07-21] MEDS: DOCUSATE SODIUM 100 MG CAP PO ×2 (08:42→20:37)
[2018-07-21] MEDS: METHIMAZOLE 5 MG TAB PO (08:42)
[2018-07-21] MEDS: SENNA TAB PO (08:42)
[2018-07-21] MEDS: CALCIUM CARBONATE 500 MG CHEW TAB PO ×3 (08:45→17:38)
[2018-07-21] MEDS: AMLODIPINE 5 MG TAB PO (08:46)
[2018-07-21] MEDS: LOSARTAN 50 MG TAB PO (08:46)
[2018-07-21] MEDS: AMIODARONE 200 MG TAB PO ×2 (08:46→20:38)
[2018-07-21] MEDS: METOPROLOL 50 MG TAB PO ×3 (08:46→20:36)
[2018-07-21] MEDS ORDERED: METHIMAZOLE 10 MG TAB PO (09:00)
[2018-07-21 10:07] LABS: ADD MAN DIFF? NO
[2018-07-21 10:11] LABS: WHITE BLOOD COUNT 3.5 10^3/ul (4.8-10.8)
[2018-07-21 10:11] LABS: ABNORMAL IP MESSAGE 1; BASOPHILS % 0.6 % (0.0-2.0); EOSINOPHILS # 0.3 10^3/ul (0.0-0.5); EOSINOPHILS % 9.4 % (0.0-7.0); HEMATOCRIT 35.7 % (37.0-47.0); LYMPHOCYTES # 0.5 10^3/ul (0.8-2.9); LYMPHOCYTES % 14.6 % (15.0-51.0); MEAN CORPUSCULAR HEMOGLOBIN 26.1 pg (29.0-33.0); MEAN CORPUSCULAR HGB CONC 30.8 g/dl (32.0-37.0); MEAN CORPUSCULAR VOLUME 84.8 fl (82.0-101.0); MONOCYTE # 0.8 10^3/ul (0.3-0.9); MONOCYTES % 22.3 % (0.0-11.0); NEUTROPHIL # 1.9 10^3/ul (1.6-7.5); NEUTROPHILS % 52.8 % (39.0-77.0); PLATELET COUNT 104 10^3/UL (140-415); RED BLOOD COUNT 4.21 10^6/ul (4.20-5.40); RED CELL DISTRIBUTION WIDTH 16.2 % (11.5-14.5)
[2018-07-21 10:21] LABS: POSITIVE DIFF @See below
[2018-07-21 10:32] LABS: ALANINE AMINOTRANSFERASE 9 IU/L (13-69); ALBUMIN/GLOBULIN RATIO 1.14; ALKALINE PHOSPHATASE 89 IU/L (42-121); ANION GAP 15 (5-13); ASPARTATE AMINO TRANSFERASE 26 IU/L (15-46); BLOOD UREA NITROGEN 53 mg/dl (7-20); CALCIUM 10.2 mg/dl (8.4-10.2); CARBON DIOXIDE 26 mmol/L (21-31); CHLORIDE 91 mmol/L (97-110); CREATININE 3.52 mg/dl (0.44-1.00); Estimated GFR 13 mL/min (>60); GLUCOSE 112 mg/dl (70-220); POTASSIUM 4.1 mmol/L (3.5-5.1); SODIUM 132 mmol/L (135-144); TOTAL PROTEIN 7.5 g/dl (6.1-8.1)
[2018-07-21] MEDS: HEPARIN 1000 UNITS/ML 10 ML INJ CATHETER (14:06)
[2018-07-21 15:06] LABS: HEPATITIS B SURFACE ANTIGEN NEGATIVE (NEGATIVE)
[2018-07-21] MEDS: ATORVASTATIN 20 MG TAB PO (20:37)
[2018-07-21] MEDS: QUETIAPINE 25 MG TAB PO (20:37)
[2018-07-21] MEDS: DOXAZOSIN 1 MG TAB PO (20:37)
[2018-07-21] MEDS: traMADol 50 MG TAB PO (20:46)
[2018-07-22] MEDS: PANTOPRAZOLE (EC) 40 MG TAB PO (06:58)
[2018-07-22 08:27] LABS: ADD MAN DIFF? NO
[2018-07-22 08:37] LABS: WHITE BLOOD COUNT 3.6 10^3/ul (4.8-10.8)
[2018-07-22 08:37] LABS: ABNORMAL IP MESSAGE 1; BASOPHILS % 0.6 % (0.0-2.0); EOSINOPHILS # 0.2 10^3/ul (0.0-0.5); EOSINOPHILS % 5.3 % (0.0-7.0); HEMOGLOBIN 10.9 g/dl (12.0-16.0); LYMPHOCYTES # 0.4 10^3/ul (0.8-2.9); LYMPHOCYTES % 12.3 % (15.0-51.0); MEAN CORPUSCULAR HEMOGLOBIN 26.1 pg (29.0-33.0); MEAN CORPUSCULAR HGB CONC 30.3 g/dl (32.0-37.0); MEAN CORPUSCULAR VOLUME 86.1 fl (82.0-101.0); MEAN PLATELET VOLUME 10.5 fl (7.4-10.4); MONOCYTE # 0.9 10^3/ul (0.3-0.9); MONOCYTES % 24.4 % (0.0-11.0); NEUTROPHILS % 57.1 % (39.0-77.0); PLATELET COUNT 92 10^3/UL (140-415); RED BLOOD COUNT 4.18 10^6/ul (4.20-5.40); RED CELL DISTRIBUTION WIDTH 16.2 % (11.5-14.5)
[2018-07-22] MEDS: DOCUSATE SODIUM 100 MG CAP PO ×2 (08:38→21:10)
[2018-07-22] MEDS: APIXABAN 5 MG TABLET PO ×2 (08:38→21:10)
[2018-07-22] MEDS: CALCIUM CARBONATE 500 MG CHEW TAB PO ×3 (08:38→17:47)
[2018-07-22] MEDS: METHIMAZOLE 5 MG TAB PO (08:38)
[2018-07-22] MEDS: SENNA TAB PO (08:38)
[2018-07-22] MEDS: LOSARTAN 50 MG TAB PO (08:39)
[2018-07-22] MEDS: METOPROLOL 50 MG TAB PO ×2 (08:39→21:11)
[2018-07-22] MEDS: AMLODIPINE 5 MG TAB PO (08:39)
[2018-07-22] MEDS: FAMOTIDINE 20 MG TAB PO (08:40)
[2018-07-22] MEDS: AMIODARONE 200 MG TAB PO ×2 (08:40→21:13)
[2018-07-22 08:45] LABS: POSITIVE DIFF @See below
[2018-07-22 09:13] LABS: ANION GAP 12 (5-13); BLOOD UREA NITROGEN 28 mg/dl (7-20); CALCIUM 10.2 mg/dl (8.4-10.2); CARBON DIOXIDE 29 mmol/L (21-31); CHLORIDE 93 mmol/L (97-110); CREATININE 2.34 mg/dl (0.44-1.00); Estimated GFR 21 mL/min (>60); GLUCOSE 87 mg/dl (70-220); POTASSIUM 3.7 mmol/L (3.5-5.1); SODIUM 134 mmol/L (135-144)
[2018-07-22 10:31] LABS: ANISOCYTOSIS 1+ (0-0); BAND NEUTROPHILS % (M) 1 % (0-4); EOSINOPHILS % (M) 5 % (0-7); GIANT THROMBO% (M) 1 % (0-0); HYPOCHROMASIA 1+ (0-0); LYMPHOCYTES #M 0.3 10^3/ul (0.8-2.9); LYMPHOCYTES % (M) 9 % (15-51); METAMYELOCYTES %M 1 % (0-0); MICROCYTOSIS 1+ (0-0); MONOCYTE #M 0.6 10^3/ul (0.3-0.9); MONOCYTES % (M) 19 % (0-11); OVALOCYTES 1+ (0-0); PLATELET ESTIMATE DECREASED; POIKILOCYTOSIS 1+ (0-0); POLYCHROMASIA 3+ (0-0); SEG NEUT #M 2.3 10^3/ul (1.6-7.5); SEGMENTED NEUTROPHILS (M) % 65 % (39-77); SMUDGE%M 4 % (0-0); TARGET CELLS 1+ (0-0)
[2018-07-22] MEDS: hydrALAzine 20 MG INJ IV (11:31)
[2018-07-22] MEDS: ATORVASTATIN 20 MG TAB PO (21:10)
[2018-07-22] MEDS: traMADol 50 MG TAB PO (21:12)
[2018-07-22] MEDS: QUETIAPINE 25 MG TAB PO (21:12)
[2018-07-22] MEDS: DOXAZOSIN 1 MG TAB PO (21:14)
[2018-07-22] MEDS: clonAZEPAM 0.5 MG TAB PO (21:57)
[2018-07-23] MEDS: PANTOPRAZOLE (EC) 40 MG TAB PO (06:39)
[2018-07-23] MEDS: CALCIUM CARBONATE 500 MG CHEW TAB PO ×3 (08:55→18:55)
[2018-07-23] MEDS: DOCUSATE SODIUM 100 MG CAP PO ×2 (09:00→23:36)
[2018-07-23] MEDS: SENNA TAB PO (09:00)
[2018-07-23] MEDS: AMIODARONE 200 MG TAB PO ×2 (09:00→23:36)
[2018-07-23] MEDS: METHIMAZOLE 5 MG TAB PO (09:32)
[2018-07-23] MEDS: LOSARTAN 50 MG TAB PO (09:32)
[2018-07-23] MEDS: APIXABAN 5 MG TABLET PO ×2 (09:33→23:37)
[2018-07-23] MEDS: AMLODIPINE 5 MG TAB PO (09:33)
[2018-07-23] MEDS: FAMOTIDINE 20 MG TAB PO (09:35)
[2018-07-23] MEDS: METOPROLOL 50 MG TAB PO ×2 (09:35→23:38)
[2018-07-23] MEDS: ATORVASTATIN 20 MG TAB PO (23:34)
[2018-07-23] MEDS: QUETIAPINE 25 MG TAB PO (23:37)
[2018-07-23] MEDS: DOXAZOSIN 1 MG TAB PO (23:39)
[2018-07-23] MEDS: traMADol 50 MG TAB PO (23:39)
[2018-07-23] MEDS: clonAZEPAM 0.5 MG TAB PO (23:40)
[2018-07-24] MEDS: PANTOPRAZOLE (EC) 40 MG TAB PO (06:27)
[2018-07-24] MEDS: DOCUSATE SODIUM 100 MG CAP PO ×2 (09:00→21:00)
[2018-07-24] MEDS: SENNA TAB PO (09:00)
[2018-07-24] MEDS: METHIMAZOLE 5 MG TAB PO (09:33)
[2018-07-24] MEDS: CALCIUM CARBONATE 500 MG CHEW TAB PO ×3 (09:34→18:55)
[2018-07-24] MEDS: AMLODIPINE 5 MG TAB PO (09:34)
[2018-07-24] MEDS: LOSARTAN 50 MG TAB PO (09:34)
[2018-07-24] MEDS: APIXABAN 5 MG TABLET PO ×2 (09:35→21:06)
[2018-07-24] MEDS: AMIODARONE 200 MG TAB PO ×2 (09:35→21:05)
[2018-07-24] MEDS: FAMOTIDINE 20 MG TAB PO (09:35)
[2018-07-24] MEDS: METOPROLOL 50 MG TAB PO ×2 (09:35→21:05)
[2018-07-24] MEDS: clonAZEPAM 0.5 MG TAB PO ×2 (09:38→17:49)
[2018-07-24] MEDS: DOXAZOSIN 1 MG TAB PO (21:04)
[2018-07-24] MEDS: ATORVASTATIN 20 MG TAB PO (21:05)
[2018-07-24] MEDS: QUETIAPINE 25 MG TAB PO (21:05)
[2018-07-24] MEDS: traMADol 50 MG TAB PO (21:06)
[2018-07-25] MEDS: PANTOPRAZOLE (EC) 40 MG TAB PO (06:35)
[2018-07-25] MEDS: traMADol 50 MG TAB PO ×2 (06:42→16:58)
[2018-07-25 07:44] LABS: ADD MAN DIFF? NO
[2018-07-25 07:56] LABS: WHITE BLOOD COUNT 3.4 10^3/ul (4.8-10.8)
[2018-07-25 07:56] LABS: ABNORMAL IP MESSAGE 1; BASOPHILS % 0.6 % (0.0-2.0); EOSINOPHILS # 0.3 10^3/ul (0.0-0.5); EOSINOPHILS % 10.1 % (0.0-7.0); HEMATOCRIT 36.1 % (37.0-47.0); LYMPHOCYTES # 0.7 10^3/ul (0.8-2.9); LYMPHOCYTES % 20.4 % (15.0-51.0); MEAN CORPUSCULAR HEMOGLOBIN 26.1 pg (29.0-33.0); MEAN CORPUSCULAR HGB CONC 30.5 g/dl (32.0-37.0); MEAN CORPUSCULAR VOLUME 85.7 fl (82.0-101.0); MEAN PLATELET VOLUME 10.7 fl (7.4-10.4); MONOCYTE # 0.6 10^3/ul (0.3-0.9); MONOCYTES % 16.3 % (0.0-11.0); NEUTROPHIL # 1.8 10^3/ul (1.6-7.5); NEUTROPHILS % 52.3 % (39.0-77.0); PLATELET COUNT 76 10^3/UL (140-415); RED BLOOD COUNT 4.21 10^6/ul (4.20-5.40); RED CELL DISTRIBUTION WIDTH 16.1 % (11.5-14.5)
[2018-07-25 08:01] LABS: POSITIVE DIFF @See below
[2018-07-25 08:15] LABS: ALANINE AMINOTRANSFERASE 16 IU/L (13-69); ALBUMIN 3.7 g/dl (3.3-4.9); ALBUMIN/GLOBULIN RATIO 1.15; ALKALINE PHOSPHATASE 91 IU/L (42-121); ANION GAP 11 (5-13); ASPARTATE AMINO TRANSFERASE 25 IU/L (15-46); BLOOD UREA NITROGEN 43 mg/dl (7-20); CALCIUM 10.2 mg/dl (8.4-10.2); CARBON DIOXIDE 29 mmol/L (21-31); CHLORIDE 95 mmol/L (97-110); CREATININE 3.03 mg/dl (0.44-1.00); Estimated GFR 15 mL/min (>60); GLUCOSE 92 mg/dl (70-220); SODIUM 135 mmol/L (135-144); TOTAL PROTEIN 6.9 g/dl (6.1-8.1)
[2018-07-25] MEDS: CALCIUM CARBONATE 500 MG CHEW TAB PO ×2 (08:55→12:54)
[2018-07-25] MEDS: DOCUSATE SODIUM 100 MG CAP PO (09:00)
[2018-07-25] MEDS: METOPROLOL 50 MG TAB PO (09:00)
[2018-07-25] MEDS: SENNA TAB PO (09:00)
[2018-07-25] MEDS: AMIODARONE 200 MG TAB PO (09:00)
[2018-07-25] MEDS: LOSARTAN 50 MG TAB PO (09:49)
[2018-07-25] MEDS: FAMOTIDINE 20 MG TAB PO (09:49)
[2018-07-25] MEDS: METHIMAZOLE 5 MG TAB PO (09:49)
[2018-07-25] MEDS: APIXABAN 5 MG TABLET PO (09:50)
[2018-07-25] MEDS: AMLODIPINE 5 MG TAB PO (09:51)
[2018-07-25] MEDS: clonAZEPAM 0.5 MG TAB PO (10:36)
== END 2018-07-25 17:05 | DRG 682 ==
LOC: 6WM 14:25 → 2NE 07-13 01:12 → TEL 07-17 14:51
PROVIDERS: Internal Medicine
PROC: 5A1D70Z Performance of Urinary Filtration, Intermittent, Less than 6 Hours Per Day (ICD-10-PCS; principal; 2018-07-08)
DX: I12.0 Hypertensive chronic kidney disease with stage 5 chronic kidney disease or end stage renal disease (principal); N18.6 End stage renal disease; F11.20 Opioid dependence, uncomplicated; N25.81 Secondary hyperparathyroidism of renal origin; E46 Unspecified protein-calorie malnutrition; I44.0 Atrioventricular block, first degree; Z99.2 Dependence on renal dialysis; D63.8 Anemia in other chronic diseases classified elsewhere; Z79.02 Long term (current) use of antithrombotics/antiplatelets; E11.9 Type 2 diabetes mellitus without complications; Z74.09 Other reduced mobility; E03.9 Hypothyroidism, unspecified; G89.4 Chronic pain syndrome; Z79.891 Long term (current) use of opiate analgesic; D63.1 Anemia in chronic kidney disease; R10.31 Right lower quadrant pain; F41.9 Anxiety disorder, unspecified; R41.82 Altered mental status, unspecified; T39.1X5A Adverse effect of 4-Aminophenol derivatives, initial encounter; Y92.239 Unspecified place in hospital as the place of occurrence of the external cause; D69.6 Thrombocytopenia, unspecified; R11.0 Nausea; I48.91 Unspecified atrial fibrillation; K73.2 Chronic active hepatitis, not elsewhere classified; B19.20 Unspecified viral hepatitis C without hepatic coma; Z68.24 Body mass index [BMI] 24.0-24.9, adult
CPT/HCPCS: 70450; 71045; 74176; 80048; 80053; 80076; 82962; 83036; 83605; 83735; 84100; 84439; 84443; 84484; 85025; 85651; 86022; 87040; 87081; 87340; 90935; 92610; 93005; 97110; 97116; 97162; 97164; 97530

== ENCOUNTER 2019-01-19 11:29 | Emergency (ER) | payer MEDICARE, OTHER ==
[2019-01-19] MEDS: HYDROmorphONE 2 MG/ML SYG IM (12:11)
[2019-01-19] MEDS: traMADol 50 MG TAB PO ×2 (12:14→17:00)
== END 2019-01-19 17:14 | disposition home or self-care (01) ==
LOC: E/R 11:29
DX: S30.0XXA Contusion of lower back and pelvis, initial encounter (principal); N18.6 End stage renal disease; E11.22 Type 2 diabetes mellitus with diabetic chronic kidney disease; I13.2 Hypertensive heart and chronic kidney disease with heart failure and with stage 5 chronic kidney disease, or end stage renal disease; I50.9 Heart failure, unspecified; W04.XXXA Fall while being carried or supported by other persons, initial encounter; Y92.9 Unspecified place or not applicable; Z99.2 Dependence on renal dialysis; Z79.01 Long term (current) use of anticoagulants
CPT/HCPCS: 72100; 72170; 72220; 96372; 99284-25